=== PATIENT | male | born 1945 | race Hispanic/Latino ===

== ENCOUNTER 2021-04-05 21:41 | Emergency (ER) | payer MEDICARE ==
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
--- NOTE | 2021-04-05 23:07 | Cat Scan Report ---
CT HEAD WITHOUT CONTRAST INDICATION : Fall, head injury. TECHNIQUE: Axial, coronal and sagittal CT imaging was performed from the skull apex through the skul l base without contrast. All CT scans at this location are performed using CT dose reduction for ALA RA by means of automated exposure control. COMPARISON: None available. FINDINGS: PARENCHYMA: No mass, midline shift, hemorrhage, extraaxial collection or acute territorial infarctio n. There is age-appropriate generalized atrophy. VENTRICLES: Symmetric and normal in size. SOFT TISSUES: No significant abnormality of the included soft tissues/orbits. BONES: No acute osseous abnormality. SINUSES: No significant abnormality. ADDITIONAL FINDINGS: None. IMPRESSION: 1. No acute intracranial abnormality. Signer Name: Bharath Morales MD Signed: 04/05/2021 11:03 PM Workstation Name: [id number]
[2021-04-05 23:13] LABS: Basophils # (Auto) 0.1 K/mm3 (0.0-0.1); Basophils % (Auto) 0.7 % (0.0-1.8); Eosinophils # (Auto) 0.5 K/mm3 (0.0-0.4); Eosinophils % (Auto) 5.7 % (0.0-4.3); Hematocrit 42.7 % (35.5-45.6); Hemoglobin 14.4 gm/dl (11.8-15.2); Lymphocytes # (Auto) 1.6 K/mm3 (1.2-5.4); Lymphocytes % (Auto) 19.4 % (13.4-35.0); Mean Corpuscular HGB Conc 34 % (32-34); Mean Corpuscular Volume 95 fl (84-94); Monocytes % (Auto) 11.9 % (0.0-7.3); Platelet Count 233 K/mm3 (140-440); Red Blood Count 4.47 M/mm3 (3.65-5.03); Red Cell Distribution Width 13.5 % (13.2-15.2)
--- NOTE | 2021-04-05 23:14 | Cat Scan Report ---
CT CERVICAL SPINE WITHOUT CONTRAST INDICATION: Neck pain after fall. COMPARISON: None available. TECHNIQUE: Axial, coronal and sagittal CT imaging of the cervical spine without contrast was performe d. All CT scans at this location are performed using CT dose reduction for ALARA by means of automat ed exposure control. FINDINGS: VERTEBRAE:No acute fracture. There is minimal anterolisthesis at C3-C4. DISC SPACES: Multilevel mild discogenic degenerative changes are present. FACET JOINTS:There is multilevel bilateral facet arthropathy. CENTRAL CANAL: No central canal stenosis or neural foraminal narrowing. SOFT TISSUES:No significant abnormality. LUNG APICES: Not included. ADDITIONAL FINDINGS: None IMPRESSION: 1. No acute findings. 2. Mild cervical spondylosis. Signer Name: Bharath Morales MD Signed: 04/05/2021 11:10 PM Workstation Name: [id number]
[2021-04-05 23:48] LABS: BUN/Creatinine Ratio 21; Blood Urea Nitrogen 19 mg/dL (9-20); Calcium 8.5 mg/dL (8.4-10.2); Hemolysis Index 6
[2021-04-06] MEDS ORDERED: LORazepam 2 MG/ML VIAL ONE (10:28)
[2021-04-06] MEDS ORDERED: LORazepam 2 MG/ML VIAL IV ONE (10:53)
[2021-04-06] MEDS ORDERED: HALOPERIDOL LACTATE 5 MG/1 ML INJ IM PRN ×2 (11:00→11:43)
[2021-04-06] MEDS ORDERED: diphenhydrAMINE 25 MG CAP PO PRN (11:43)
--- NOTE | 2021-04-06 11:45 | Event Note ---
Date: 04/06/21 The patient was evaluated in the emergency department for symptoms described in the history of present illness. He/she was evaluated in the context of the global COVID-19 pandemic, which necessitated consideration that the patient might be at risk for infection with the virus that causes COVID-19. Institutional protocols and algorithms that pertain to the evaluation of patients at risk for COVID-19 are in a state of rapid change based on information released by regulatory bodies including the CDC and federal and state organizations. These policies and algorithms were followed during the patient's care in the emergency department. Please note that these policies, procedures and recommendations changed on a rapid basis. Patient standing in room, in no acute distress. Laboratory studies initial ER documentation and imaging studies are reviewed and appreciated. Urinalysis is pending at this time. As needed medications ordered. We have requested that nursing team reconcile home medications. CK, TSH, Tylenol aspirin levels ordered. Coronavirus panel pending. Have also requested that nursing team obtain complete set of vital signs. Psychiatric consultation is pending at this time Vital Signs 04/05/21 04/06/21 22:42 10:44 Pulse Rate 85 Respiratory 16 Rate Blood Pressure 124/66 [Right]
[2021-04-06 13:49] LABS: Bilirubin,Urine NEG (Negative); Blood,Urine NEG (Negative); Color,Urine Yellow (Yellow); Mucus,Urine FEW /HPF; Protein,Urine <15 mg/dL mg/dL (Negative); RBC,Urine < 1.0 /HPF (0.0-6.0); Urobilinogen,Urine < 2.0 mg/dL (<2.0); WBC,Urine < 1.0 /HPF (0.0-6.0)
[2021-04-06 14:50] LABS: Amphetamine Screen,Urine Negative; Benzodiazepines Screen,Urine Negative; Cannabinoid Screen,Urine Negative; Cocaine Screen,Urine Negative; Methadone Screen,Urine Negative; Opiate Screen,Urine Negative
[2021-04-06] MEDS: LORazepam 2 MG/ML VIAL IM PRN (15:35)
[2021-04-07] MEDS ORDERED: ZIPRASIDONE MESYLATE 20 MG VIAL IM ONE (10:59)
[2021-04-07] MEDS ORDERED: LORazepam 2 MG/ML VIAL IM ONE (10:59)
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
[2021-04-07] MEDS: LORazepam 2 MG/ML VIAL IM PRN (11:28)
--- NOTE | 2021-04-07 18:51 | Event Note ---
S: Patient sedated O: Vital signs stable, patient in soft wrist restraints A: Dementia with behavioral disturbance P: Patient accepted to third floor Dia psych
[2021-04-07 19:37] VITALS: BP 127/83
== END 2021-04-07 20:42 | disposition other institution (70) ==
LOC: ED 21:41
DX: S09.90XA Unspecified injury of head, initial encounter (principal); S16.1XXA Strain of muscle, fascia and tendon at neck level, initial encounter; F03.90 Unspecified dementia, unspecified severity, without behavioral disturbance, psychotic disturbance, mood disturbance, and anxiety; I10 Essential (primary) hypertension; Z98.890 Other specified postprocedural states; Z79.899 Other long term (current) drug therapy; W22.8XXA Striking against or struck by other objects, initial encounter; Y93.89 Activity, other specified; Y92.89 Other specified places as the place of occurrence of the external cause; Y99.8 Other external cause status
CPT/HCPCS: 36415; 70450; 72125; 80048; 80307; 80320; 81001; 82550; 82962; 84443; 85025; G0480; J1630; J2060; U0003

== ENCOUNTER 2021-04-07 16:21 | Inpatient (IN) | payer MEDICARE ==
[2021-04-07] MEDS ORDERED: LORazepam 2 MG/ML VIAL IM PRN (19:47)
[2021-04-07] MEDS ORDERED: HALOPERIDOL LACTATE 5 MG/1 ML INJ IM PRN (19:49)
[2021-04-07] MEDS: risperiDONE 0.25 MG TAB PO SCH (22:22)
[2021-04-07] MEDS: MIRTAZAPINE 15 MG TAB PO SCH (22:22)
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
[2021-04-08] MEDS: MEMANTINE 10 MG TAB PO SCH ×2 (11:55→21:07)
[2021-04-08] MEDS: risperiDONE 0.25 MG TAB PO SCH ×2 (11:55→21:07)
[2021-04-08] MEDS: SERTRALINE 100 MG TAB PO SCH (11:55)
[2021-04-08] MEDS: DIVALPROEX DR 250 MG TAB PO SCH ×2 (11:56→21:07)
[2021-04-08] MEDS: CLOPIDOGREL 75 MG TAB PO SCH (11:56)
[2021-04-08] MEDS: PANTOPRAZOLE 40 MG TAB PO SCH (11:56)
[2021-04-08] MEDS: DONEPEZIL 5 MG TAB PO SCH (11:56)
[2021-04-08] MEDS: GABAPENTIN 300 MG CAP PO SCH ×2 (11:56→21:07)
[2021-04-08] MEDS ORDERED: QUEtiapine 25 MG TAB PO SCH (14:00)
[2021-04-08] MEDS: traZODone 50 MG TAB PO SCH (21:07)
[2021-04-08] MEDS: MIRTAZAPINE 15 MG TAB PO SCH (21:07)
[2021-04-08 23:34] LABS: Basophils % (Auto) 0.5 % (0.0-1.8); Eosinophils # (Auto) 0.3 K/mm3 (0.0-0.4); Eosinophils % (Auto) 2.7 % (0.0-4.3); Hematocrit 49.3 % (35.5-45.6); Lymphocytes # (Auto) 1.3 K/mm3 (1.2-5.4); Lymphocytes % (Auto) 13.1 % (13.4-35.0); Mean Corpuscular HGB Conc 35 % (32-34); Mean Corpuscular Volume 96 fl (84-94); Monocytes # (Auto) 1.4 K/mm3 (0.0-0.8); Monocytes % (Auto) 14.8 % (0.0-7.3); Platelet Count 249 K/mm3 (140-440); Red Blood Count 5.14 M/mm3 (3.65-5.03); Red Cell Distribution Width 13.1 % (13.2-15.2)
[2021-04-09 03:44] LABS: Alanine Aminotransferase 17 units/L (7-56); BUN/Creatinine Ratio 20; Blood Urea Nitrogen 18 mg/dL (9-20); Calcium 8.9 mg/dL (8.4-10.2); Chol/HDL Ratio 2.45 %; HDL Cholesterol 53 mg/dL (40-59); Hemolysis Index 10; LDL Cholesterol,Direct 62 mg/dL (50-130)
[2021-04-09] MEDS: DIVALPROEX DR 250 MG TAB PO SCH (09:24)
[2021-04-09] MEDS: DONEPEZIL 5 MG TAB PO SCH (09:24)
[2021-04-09] MEDS: risperiDONE 0.25 MG TAB PO SCH ×2 (09:25→22:06)
[2021-04-09] MEDS: GABAPENTIN 300 MG CAP PO SCH ×2 (09:25→22:03)
[2021-04-09] MEDS: SERTRALINE 100 MG TAB PO SCH (09:26)
[2021-04-09] MEDS: CLOPIDOGREL 75 MG TAB PO SCH (09:26)
[2021-04-09] MEDS: PANTOPRAZOLE 40 MG TAB PO SCH (09:26)
[2021-04-09] MEDS: MEMANTINE 10 MG TAB PO SCH ×2 (10:38→22:05)
--- NOTE | 2021-04-09 10:53 | Progress Note ---
Subjective Date of service: 04/09/21 Principal diagnosis: Dementia with Behavioral Disturbance Subjective Comment: Per Nurse Note: pt is resistive with care, combative when he was being changed, medication given in pudding , slept all night, no distress noted, will continue to monitor for safety. The patient was seen today. He is drowsy, but arouses. He is confused. REVIEW OF SYSTEMS ROS cannot be reliably obtained from the patient due to his mental state MENTAL STATUS EXAMINATION Unable to assess Diagnoses Dementia with Behavioral Disturbance Treatment Plan Patient admitted for inpatient psychiatric evaluation, medication adjustment and close monitoring The patient's behavior, mood, sleep and appetite will be closely monitored. Patient enrolled in individual and group therapeutic sessions and encouraged to attend. Patient provided with a safe and structured environment. Patient's physical health needs will be addressed by the Hospitalist. Hospitalist Consulted Labs including CBC, CMP, Lipid profile and Hemoglobin A1C levels ordered for baseline reference Social Assessment will be completed and the Food Assembler will work with patient and family to ensure a suitable and safe disposition Medication adjustment will be made as clinically indicated Usual Wellness Mormon/Preservation: - Start Trazodone 50 mg po QHS & 50 mg po QHS PRN between 10 PM & 2 AM for insomnia - Start Melatonin 5 mg po QHS to promote circadian rhythm - Start [place]-3 for brain health, reduce impulsivity, and as adjunctive treatment for mood disorder, continue upon discharge given overall benefits. - Start B1 prophylaxis with 200 mg po for 5 days The patient agreed on the treatment plan, understood the risk, benefit, alternative treatment, potential consequence of no treatment, and gave informed consent. Estimated days: 5 Post hospital care: primary care provider, psychiatric provider Medications and Allergies Allergies Allergy/AdvReac Type Severity Reaction Status Date / Time No Known Allergies Allergy Unverified 04/06/21 10:45 Home Medications Medication Instructions Recorded Confirmed Last Taken Type AtorvaSTATin [Lipitor] 40 mg PO QHS 04/07/21 04/07/21 Unknown History Clopidogrel [Plavix] 75 mg PO QDAY 04/07/21 04/07/21 Unknown History Divalproex [Sanket GARCIA] 250 mg PO BID 04/07/21 04/07/21 Unknown History Gabapentin [Neurontin] 300 mg PO BID 04/07/21 04/07/21 Unknown History Memantine [Namenda] 10 mg PO BID 04/07/21 04/07/21 Unknown History Pantoprazole [Protonix] 40 mg PO QDAY 04/07/21 04/07/21 Unknown History QUEtiapine [SEROquel] 25 mg PO TID 04/07/21 04/07/21 Unknown History Sertraline [Zoloft] 100 mg PO QDAY 04/07/21 04/07/21 Unknown History donepeziL [Aricept] 5 mg PO QDAY 04/07/21 04/07/21 Unknown History traZODone [Desyrel] 50 mg PO QHS 04/07/21 04/07/21 Unknown History Active Meds: Active Medications Atorvastatin Calcium (Atorvastatin 40 Mg Tab) 40 mg PO QHS [facility] Last Admin: 04/08/21 21:07 Dose: 40 mg Documented by: Clopidogrel Bisulfate (Clopidogrel 75 Mg Tab) 75 mg PO QDAY [facility] Last Admin: 04/09/21 09:26 Dose: 75 mg Documented by: Divalproex Sodium (Divalproex Dr 250 Mg Tab) 250 mg PO BID [facility] Last Admin: 04/09/21 09:24 Dose: 250 mg Documented by: Donepezil HCl (Donepezil 5 Mg Tab) 5 mg PO QDAY [facility] Last Admin: 04/09/21 09:24 Dose: 5 mg Documented by: Gabapentin (Gabapentin 300 Mg Cap) 300 mg PO BID [facility] Last Admin: 04/09/21 09:25 Dose: 300 mg Documented by: Haloperidol Lactate (Haloperidol Lactate 5 Mg/1 Ml Inj) 5 mg IM Q6H PRN PRN Reason: Agitation Lorazepam (Lorazepam 2 Mg/Ml Vial) 2 mg IM Q6H PRN PRN Reason: Agitation Melatonin (Melatonin 5 Mg Tab) 5 mg PO QHS PRN PRN Reason: Sleep Memantine (Memantine 10 Mg Tab) 10 mg PO BID [facility] Last Admin: 04/08/21 21:07 Dose: 10 mg Documented by: Mirtazapine (Mirtazapine 15 Mg Tab) 15 mg PO QHS [facility] Last Admin: 04/08/21 21:07 Dose: 15 mg Documented by: Pantoprazole Sodium (Pantoprazole 40 Mg Tab) 40 mg PO QDAY [facility] Last Admin: 04/09/21 09:26 Dose: 40 mg Documented by: Risperidone (Risperidone 0.25 Mg Tab) 0.5 mg PO BID [facility] Last Admin: 04/09/21 09:25 Dose: 0.5 mg Documented by: Sertraline HCl (Sertraline 100 Mg Tab) 100 mg PO QDAY [facility] Last Admin: 04/09/21 09:26 Dose: 100 mg Documented by: Trazodone HCl (Trazodone 50 Mg Tab) 50 mg PO QHS [facility] Last Admin: 04/08/21 21:07 Dose: 50 mg Documented by: Results - Results Labs/Vitals: Laboratory Last Values WBC 9.8 K/mm3 (4.5-11.0) 04/08/21 22:55 RBC 5.14 M/mm3 (3.65-5.03) H 04/08/21 22:55 Hgb 17.0 gm/dl (11.8-15.2) H 04/08/21 22:55 Hct 49.3 % (35.5-45.6) H D 04/08/21 22:55 MCV 96 fl (84-94) H 04/08/21 22:55 MCH 33 pg (28-32) H 04/08/21 22:55 MCHC 35 % (32-34) H 04/08/21 22:55 RDW 13.1 % (13.2-15.2) L 04/08/21 22:55 Plt Count 249 K/mm3 (140-440) 04/08/21 22:55 Lymph % (Auto) 13.1 % (13.4-35.0) L 04/08/21 22:55 [place] % (Auto) 14.8 % (0.0-7.3) H 04/08/21 22:55 Eos % (Auto) 2.7 % (0.0-4.3) 04/08/21 22:55 Baso % (Auto) 0.5 % (0.0-1.8) 04/08/21 22:55 Lymph # (Auto) 1.3 K/mm3 (1.2-5.4) 04/08/21 22:55 [place] # (Auto) 1.4 K/mm3 (0.0-0.8) H 04/08/21 22:55 Eos # (Auto) 0.3 K/mm3 (0.0-0.4) 04/08/21 22:55 Baso # (Auto) 0.0 K/mm3 (0.0-0.1) 04/08/21 22:55 Seg Neutrophils % 68.9 % (40.0-70.0) 04/08/21 22:55 Seg Neutrophils # 6.7 K/mm3 (1.8-7.7) 04/08/21 22:55 Sodium 139 mmol/L (137-145) 04/08/21 22:55 Potassium 4.1 mmol/L (3.6-5.0) 04/08/21 22:55 Chloride 100.2 mmol/L (98-107) 04/08/21 22:55 Carbon Dioxide 21 mmol/L (22-30) L D 04/08/21 22:55 Anion Gap 22 mmol/L 04/08/21 22:55 BUN 18 mg/dL (9-20) 04/08/21 22:55 Creatinine 0.9 mg/dL (0.8-1.3) 04/08/21 22:55 Estimated GFR > 60 ml/min 04/08/21 22:55 BUN/Creatinine Ratio 20 % 04/08/21 22:55 Glucose 130 mg/dL (75-100) H 04/08/21 22:55 POC Glucose 113 mg/dL (70-105) H 04/07/21 22:48 Hemoglobin A1c 6.6 % (4-6) H 04/08/21 22:55 Calcium 8.9 mg/dL (8.4-10.2) 04/08/21 22:55 Magnesium 2.10 mg/dL (1.7-2.3) 04/08/21 22:55 Total Bilirubin 0.60 mg/dL (0.1-1.2) 04/08/21 22:55 AST 30 units/L (5-40) 04/08/21 22:55 ALT 17 units/L (7-56) 04/08/21 22:55 Alkaline Phosphatase 102 units/L (35-129) 04/08/21 22:55 Total Protein 6.7 g/dL (6.3-8.2) 04/08/21 22:55 Albumin 4.0 g/dL (3.9-5) 04/08/21 22:55 Albumin/Globulin Ratio 1.5 % 04/08/21 22:55 Triglycerides 100 mg/dL (2-149) 04/08/21 22:55 Cholesterol 130 mg/dL (50-199) 04/08/21 22:55 LDL Cholesterol Direct 62 mg/dL (50-130) 04/08/21 22:55 HDL Cholesterol 53 mg/dL (40-59) 04/08/21 22:55 Cholesterol/HDL Ratio 2.45 % 04/08/21 22:55 TSH 3.120 mlU/mL (0.270-4.200) 04/08/21 22:55 Last Vital Signs Temp 98.0 F 04/09/21 09:41 Pulse 76 04/09/21 09:41 Resp 20 04/09/21 09:41 BP 111/59 04/09/21 09:41 Pulse Ox 92 04/09/21 09:41
[2021-04-09] MEDS: MIRTAZAPINE 15 MG TAB PO SCH (22:03)
[2021-04-09] MEDS: VALPROIC ACID 250 MG/5 ML ORAL LIQD PO SCH (22:03)
[2021-04-09] MEDS: traZODone 50 MG TAB PO SCH (22:04)
[2021-04-09] MEDS: MELATONIN 5 MG TAB PO PRN (22:06)
[2021-04-10] MEDS: PANTOPRAZOLE 40 MG TAB PO SCH (10:07)
[2021-04-10] MEDS: MEMANTINE 10 MG TAB PO SCH ×2 (10:07→21:48)
[2021-04-10] MEDS: risperiDONE 0.25 MG TAB PO SCH ×2 (10:07→21:47)
[2021-04-10] MEDS: SERTRALINE 100 MG TAB PO SCH (10:07)
[2021-04-10] MEDS: GABAPENTIN 300 MG CAP PO SCH ×2 (10:07→21:48)
[2021-04-10] MEDS: DONEPEZIL 5 MG TAB PO SCH (10:07)
[2021-04-10] MEDS: CLOPIDOGREL 75 MG TAB PO SCH (10:08)
[2021-04-10] MEDS: VALPROIC ACID 250 MG/5 ML ORAL LIQD PO SCH ×3 (10:09→21:00)
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
[2021-04-10] MEDS: MIRTAZAPINE 15 MG TAB PO SCH (21:48)
[2021-04-10] MEDS: traZODone 50 MG TAB PO SCH (21:48)
[2021-04-10] MEDS ORDERED: risperiDONE 1 MG TAB PO SCH (22:00)
[2021-04-11] MEDS: VALPROIC ACID 250 MG/5 ML ORAL LIQD PO SCH ×3 (08:57→21:46)
[2021-04-11] MEDS: CLOPIDOGREL 75 MG TAB PO SCH (09:10)
[2021-04-11] MEDS: SERTRALINE 100 MG TAB PO SCH (09:10)
[2021-04-11] MEDS: GABAPENTIN 300 MG CAP PO SCH ×2 (09:11→21:46)
[2021-04-11] MEDS: DONEPEZIL 5 MG TAB PO SCH (09:11)
[2021-04-11] MEDS: PANTOPRAZOLE 40 MG TAB PO SCH (09:11)
[2021-04-11] MEDS: risperiDONE 0.25 MG TAB PO SCH ×2 (09:11→21:47)
[2021-04-11] MEDS: MEMANTINE 10 MG TAB PO SCH ×2 (09:11→21:47)
[2021-04-11] MEDS: traZODone 50 MG TAB PO SCH (21:46)
[2021-04-11] MEDS: MIRTAZAPINE 15 MG TAB PO SCH (21:47)
[2021-04-11] MEDS: MELATONIN 5 MG TAB PO PRN (21:48)
--- NOTE | 2021-04-12 09:19 | Progress Note ---
Subjective Date of service: 04/12/21 Principal diagnosis: Dementia with Behavioral Disturbance Subjective Comment: Per Nurse Note: Last evening the patient spent in the activity room with peers. He had minimal interactions. He dozed off and on. He talked to himself. Patient does not understand questions regarding suicidality. His appetite is fair and he needs encouragement to eat. He was medication compliant. Overnight the patient rested quietly. He continues to become agitated during adls. He presents as sleeping 8 hours. Will continue to monitor patient for safety. The patient was seen today. He is drowsy, but arouses. He is confused. He still mumbles some nonsensical words. Nursing staff has reported that he talks to himself, and continues to be agitated. Reason for continued inpatient treatment: The patient continues to be agitated REVIEW OF SYSTEMS ROS cannot be reliably obtained from the patient due to his mental state MENTAL STATUS EXAMINATION Unable to assess Diagnoses Dementia with Behavioral Disturbance Treatment Plan Patient admitted for inpatient psychiatric evaluation, medication adjustment and close monitoring The patient's behavior, mood, sleep and appetite will be closely monitored. Patient enrolled in individual and group therapeutic sessions and encouraged to attend. Patient provided with a safe and structured environment. Patient's physical health needs will be addressed by the Hospitalist. Hospitalist Consulted Labs including CBC, CMP, Lipid profile and Hemoglobin A1C levels ordered for baseline reference Social Assessment will be completed and the Jet Handler will work with patient and family to ensure a suitable and safe disposition Medication adjustment will be made as clinically indicated Increased Valproic 250mg po TID yesterday No changes made today Usual Wellness Latter Day/Preservation: - Start Trazodone 50 mg po QHS & 50 mg po QHS PRN between 10 PM & 2 AM for insomnia - Start Melatonin 5 mg po QHS to promote circadian rhythm - Start [place]-3 for brain health, reduce impulsivity, and as adjunctive treatment for mood disorder, continue upon discharge given overall benefits. - Start B1 prophylaxis with 200 mg po for 5 days The patient agreed on the treatment plan, understood the risk, benefit, alternative treatment, potential consequence of no treatment, and gave informed consent. Estimated days: 5 Post hospital care: primary care provider, psychiatric provider Medications and Allergies Allergies Allergy/AdvReac Type Severity Reaction Status Date / Time No Known Allergies Allergy Unverified 04/06/21 10:45 Home Medications Medication Instructions Recorded Confirmed Last Taken Type AtorvaSTATin [Lipitor] 40 mg PO QHS 04/07/21 04/07/21 Unknown History Clopidogrel [Plavix] 75 mg PO QDAY 04/07/21 04/07/21 Unknown History Divalproex [Sanket GARCIA] 250 mg PO BID 04/07/21 04/07/21 Unknown History Gabapentin [Neurontin] 300 mg PO BID 04/07/21 04/07/21 Unknown History Memantine [Namenda] 10 mg PO BID 04/07/21 04/07/21 Unknown History Pantoprazole [Protonix] 40 mg PO QDAY 04/07/21 04/07/21 Unknown History QUEtiapine [SEROquel] 25 mg PO TID 04/07/21 04/07/21 Unknown History Sertraline [Zoloft] 100 mg PO QDAY 04/07/21 04/07/21 Unknown History donepeziL [Aricept] 5 mg PO QDAY 04/07/21 04/07/21 Unknown History traZODone [Desyrel] 50 mg PO QHS 04/07/21 04/07/21 Unknown History Active Meds: Active Medications Atorvastatin Calcium (Atorvastatin 40 Mg Tab) 40 mg PO QHS [facility] Last Admin: 04/11/21 21:47 Dose: 40 mg Documented by: Clopidogrel Bisulfate (Clopidogrel 75 Mg Tab) 75 mg PO QDAY [facility] Last Admin: 04/11/21 09:10 Dose: 75 mg Documented by: Donepezil HCl (Donepezil 5 Mg Tab) 5 mg PO QDAY [facility] Last Admin: 04/11/21 09:11 Dose: 5 mg Documented by: Gabapentin (Gabapentin 300 Mg Cap) 300 mg PO BID [facility] Last Admin: 04/11/21 21:46 Dose: 300 mg Documented by: Haloperidol Lactate (Haloperidol Lactate 5 Mg/1 Ml Inj) 5 mg IM Q6H PRN PRN Reason: Agitation Lorazepam (Lorazepam 2 Mg/Ml Vial) 2 mg IM Q6H PRN PRN Reason: Agitation Melatonin (Melatonin 5 Mg Tab) 5 mg PO QHS PRN PRN Reason: Sleep Last Admin: 04/11/21 21:48 Dose: 5 mg Documented by: Memantine (Memantine 10 Mg Tab) 10 mg PO BID [facility] Last Admin: 04/11/21 21:47 Dose: 10 mg Documented by: Mirtazapine (Mirtazapine 15 Mg Tab) 15 mg PO QHS [facility] Last Admin: 04/11/21 21:47 Dose: 15 mg Documented by: Pantoprazole Sodium (Pantoprazole 40 Mg Tab) 40 mg PO QDAY [facility] Last Admin: 04/11/21 09:11 Dose: 40 mg Documented by: Risperidone (Risperidone 0.25 Mg Tab) 0.5 mg PO BID [facility] Last Admin: 04/11/21 21:47 Dose: 0.5 mg Documented by: Sertraline HCl (Sertraline 100 Mg Tab) 100 mg PO QDAY [facility] Last Admin: 04/11/21 09:10 Dose: 100 mg Documented by: Trazodone HCl (Trazodone 50 Mg Tab) 50 mg PO QHS [facility] Last Admin: 04/11/21 21:46 Dose: 50 mg Documented by: Valproic Acid (Valproic Acid 250 Mg/5 Ml Oral Liqd) 250 mg PO TID [facility] Last Admin: 04/11/21 21:46 Dose: 250 mg Documented by: Results - Results Labs/Vitals: Laboratory Last Values WBC 9.8 K/mm3 (4.5-11.0) 04/08/21 22:55 RBC 5.14 M/mm3 (3.65-5.03) H 04/08/21 22:55 Hgb 17.0 gm/dl (11.8-15.2) H 04/08/21 22:55 Hct 49.3 % (35.5-45.6) H D 04/08/21 22:55 MCV 96 fl (84-94) H 04/08/21 22:55 MCH 33 pg (28-32) H 04/08/21 22:55 MCHC 35 % (32-34) H 04/08/21 22:55 RDW 13.1 % (13.2-15.2) L 04/08/21 22:55 Plt Count 249 K/mm3 (140-440) 04/08/21 22:55 Lymph % (Auto) 13.1 % (13.4-35.0) L 04/08/21 22:55 [place] % (Auto) 14.8 % (0.0-7.3) H 04/08/21 22:55 Eos % (Auto) 2.7 % (0.0-4.3) 04/08/21 22:55 Baso % (Auto) 0.5 % (0.0-1.8) 04/08/21 22:55 Lymph # (Auto) 1.3 K/mm3 (1.2-5.4) 04/08/21 22:55 [place] # (Auto) 1.4 K/mm3 (0.0-0.8) H 04/08/21 22:55 Eos # (Auto) 0.3 K/mm3 (0.0-0.4) 04/08/21 22:55 Baso # (Auto) 0.0 K/mm3 (0.0-0.1) 04/08/21 22:55 Seg Neutrophils % 68.9 % (40.0-70.0) 04/08/21 22:55 Seg Neutrophils # 6.7 K/mm3 (1.8-7.7) 04/08/21 22:55 Sodium 139 mmol/L (137-145) 04/08/21 22:55 Potassium 4.1 mmol/L (3.6-5.0) 04/08/21 22:55 Chloride 100.2 mmol/L (98-107) 04/08/21 22:55 Carbon Dioxide 21 mmol/L (22-30) L D 04/08/21 22:55 Anion Gap 22 mmol/L 04/08/21 22:55 BUN 18 mg/dL (9-20) 04/08/21 22:55 Creatinine 0.9 mg/dL (0.8-1.3) 04/08/21 22:55 Estimated GFR > 60 ml/min 04/08/21 22:55 BUN/Creatinine Ratio 20 % 04/08/21 22:55 Glucose 130 mg/dL (75-100) H 04/08/21 22:55 POC Glucose 113 mg/dL (70-105) H 04/07/21 22:48 Hemoglobin A1c 6.6 % (4-6) H 04/08/21 22:55 Calcium 8.9 mg/dL (8.4-10.2) 04/08/21 22:55 Magnesium 2.10 mg/dL (1.7-2.3) 04/08/21 22:55 Total Bilirubin 0.60 mg/dL (0.1-1.2) 04/08/21 22:55 AST 30 units/L (5-40) 04/08/21 22:55 ALT 17 units/L (7-56) 04/08/21 22:55 Alkaline Phosphatase 102 units/L (35-129) 04/08/21 22:55 Total Protein 6.7 g/dL (6.3-8.2) 04/08/21 22:55 Albumin 4.0 g/dL (3.9-5) 04/08/21 22:55 Albumin/Globulin Ratio 1.5 % 04/08/21 22:55 Triglycerides 100 mg/dL (2-149) 04/08/21 22:55 Cholesterol 130 mg/dL (50-199) 04/08/21 22:55 LDL Cholesterol Direct 62 mg/dL (50-130) 04/08/21 22:55 HDL Cholesterol 53 mg/dL (40-59) 04/08/21 22:55 Cholesterol/HDL Ratio 2.45 % 04/08/21 22:55 TSH 3.120 mlU/mL (0.270-4.200) 04/08/21 22:55 Last Vital Signs Temp 97.7 F 04/11/21 19:29 Pulse 95 H 04/11/21 19:29 Resp 18 04/11/21 19:29 BP 108/70 04/11/21 19:29 Pulse Ox 91 04/11/21 19:29
[2021-04-12] MEDS: risperiDONE 0.25 MG TAB PO SCH ×2 (11:33→21:21)
[2021-04-12] MEDS: VALPROIC ACID 250 MG/5 ML ORAL LIQD PO SCH ×3 (11:33→21:22)
[2021-04-12] MEDS: SERTRALINE 100 MG TAB PO SCH (11:33)
[2021-04-12] MEDS: GABAPENTIN 300 MG CAP PO SCH ×2 (11:34→21:21)
[2021-04-12] MEDS: MEMANTINE 10 MG TAB PO SCH ×2 (11:34→21:28)
[2021-04-12] MEDS: CLOPIDOGREL 75 MG TAB PO SCH (11:34)
[2021-04-12] MEDS: PANTOPRAZOLE 40 MG TAB PO SCH (11:34)
[2021-04-12] MEDS: DONEPEZIL 5 MG TAB PO SCH (11:34)
--- NOTE | 2021-04-12 11:49 | Event Note ---
Date: 04/12/21 Spoke to the patient's daughter to discuss the patient's medications and progress.
[2021-04-12] MEDS: traZODone 50 MG TAB PO SCH (21:21)
[2021-04-12] MEDS: MIRTAZAPINE 15 MG TAB PO SCH (21:21)
--- NOTE | 2021-04-13 10:30 | Progress Note ---
Subjective Date of service: 04/13/21 Principal diagnosis: Dementia with Behavioral Disturbance Subjective Comment: The patient was seen today. He is drowsy, but arouses. He is confused. Nursing staff states the patient is confused, hallucinates and continues to be agitated and combative. Reason for continued inpatient treatment: The patient continues to be agitated, combative and hallucinates. Will adjust medication, and continue to monitor progress. REVIEW OF SYSTEMS ROS cannot be reliably obtained from the patient due to his mental state MENTAL STATUS EXAMINATION Unable to assess Diagnoses Dementia with Behavioral Disturbance Treatment Plan Patient admitted for inpatient psychiatric evaluation, medication adjustment and close monitoring The patient's behavior, mood, sleep and appetite will be closely monitored. Patient enrolled in individual and group therapeutic sessions and encouraged to attend. Patient provided with a safe and structured environment. Patient's physical health needs will be addressed by the Hospitalist. Hospitalist Consulted Labs including CBC, CMP, Lipid profile and Hemoglobin A1C levels ordered for baseline reference Social Assessment will be completed and the Tariff Publishing Agent will work with patient and family to ensure a suitable and safe disposition Medication adjustment will be made as clinically indicated Decreaes Valproic 125mg po TID yesterday to prevent daytime sleepiness Increase Risperidone 1mg po BID Usual Wellness Anglican/Preservation: - Start Trazodone 50 mg po QHS & 50 mg po QHS PRN between 10 PM & 2 AM for insomnia - Start Melatonin 5 mg po QHS to promote circadian rhythm - Start [place]-3 for brain health, reduce impulsivity, and as adjunctive treatment for mood disorder, continue upon discharge given overall benefits. - Start B1 prophylaxis with 200 mg po for 5 days The patient agreed on the treatment plan, understood the risk, benefit, alternative treatment, potential consequence of no treatment, and gave informed consent. Estimated days: 5 Post hospital care: primary care provider, psychiatric provider Medications and Allergies Allergies Allergy/AdvReac Type Severity Reaction Status Date / Time No Known Allergies Allergy Unverified 04/06/21 10:45 Home Medications Medication Instructions Recorded Confirmed Last Taken Type AtorvaSTATin [Lipitor] 40 mg PO QHS 04/07/21 04/07/21 Unknown History Clopidogrel [Plavix] 75 mg PO QDAY 04/07/21 04/07/[address] [DepaKOTE DR] 250 mg PO BID 04/07/21 04/07/21 Unknown History Gabapentin [Neurontin] 300 mg PO BID 04/07/21 04/07/21 Unknown History Memantine [Namenda] 10 mg PO BID 04/07/21 04/07/21 Unknown History Pantoprazole [Protonix] 40 mg PO QDAY 04/07/21 04/07/21 Unknown History QUEtiapine [SEROquel] 25 mg PO TID 04/07/21 04/07/21 Unknown History Sertraline [Zoloft] 100 mg PO QDAY 04/07/21 04/07/21 Unknown History donepeziL [Aricept] 5 mg PO QDAY 04/07/21 04/07/21 Unknown History traZODone [Desyrel] 50 mg PO QHS 04/07/21 04/07/21 Unknown History Active Meds: Active Medications Atorvastatin Calcium (Atorvastatin 40 Mg Tab) 40 mg PO QHS [facility] Last Admin: 04/12/21 21:21 Dose: 40 mg Documented by: Clopidogrel Bisulfate (Clopidogrel 75 Mg Tab) 75 mg PO QDAY [facility] Last Admin: 04/12/21 11:34 Dose: 75 mg Documented by: Donepezil HCl (Donepezil 5 Mg Tab) 5 mg PO QDAY [facility] Last Admin: 04/12/21 11:34 Dose: 5 mg Documented by: Gabapentin (Gabapentin 300 Mg Cap) 300 mg PO BID [facility] Last Admin: 04/12/21 21:21 Dose: 300 mg Documented by: Haloperidol Lactate (Haloperidol Lactate 5 Mg/1 Ml Inj) 5 mg IM Q6H PRN PRN Reason: Agitation Lorazepam (Lorazepam 2 Mg/Ml Vial) 2 mg IM Q6H PRN PRN Reason: Agitation Melatonin (Melatonin 5 Mg Tab) 5 mg PO QHS PRN PRN Reason: Sleep Last Admin: 04/11/21 21:48 Dose: 5 mg Documented by: Memantine (Memantine 10 Mg Tab) 10 mg PO BID [facility] Last Admin: 04/12/21 21:28 Dose: 10 mg Documented by: Mirtazapine (Mirtazapine 15 Mg Tab) 15 mg PO QHS [facility] Last Admin: 04/12/21 21:21 Dose: 15 mg Documented by: Pantoprazole Sodium (Pantoprazole 40 Mg Tab) 40 mg PO QDAY [facility] Last Admin: 04/12/21 11:34 Dose: 40 mg Documented by: Risperidone (Risperidone 0.25 Mg Tab) 0.5 mg PO BID [facility] Last Admin: 04/12/21 21:21 Dose: 0.5 mg Documented by: Sertraline HCl (Sertraline 100 Mg Tab) 100 mg PO QDAY [facility] Last Admin: 04/12/21 11:33 Dose: 100 mg Documented by: Trazodone HCl (Trazodone 50 Mg Tab) 50 mg PO QHS [facility] Last Admin: 04/12/21 21:21 Dose: 50 mg Documented by: Valproic Acid (Valproic Acid 250 Mg/5 Ml Oral Liqd) 250 mg PO TID [facility] Last Admin: 04/12/21 21:22 Dose: 250 mg Documented by: Results - Results Labs/Vitals: Laboratory Last Values WBC 9.8 K/mm3 (4.5-11.0) 04/08/21 22:55 RBC 5.14 M/mm3 (3.65-5.03) H 04/08/21 22:55 Hgb 17.0 gm/dl (11.8-15.2) H 04/08/21 22:55 Hct 49.3 % (35.5-45.6) H D 04/08/21 22:55 MCV 96 fl (84-94) H 04/08/21 22:55 MCH 33 pg (28-32) H 04/08/21 22:55 MCHC 35 % (32-34) H 04/08/21 22:55 RDW 13.1 % (13.2-15.2) L 04/08/21 22:55 Plt Count 249 K/mm3 (140-440) 04/08/21 22:55 Lymph % (Auto) 13.1 % (13.4-35.0) L 04/08/21 22:55 [place] % (Auto) 14.8 % (0.0-7.3) H 04/08/21 22:55 Eos % (Auto) 2.7 % (0.0-4.3) 04/08/21 22:55 Baso % (Auto) 0.5 % (0.0-1.8) 04/08/21 22:55 Lymph # (Auto) 1.3 K/mm3 (1.2-5.4) 04/08/21 22:55 [place] # (Auto) 1.4 K/mm3 (0.0-0.8) H 04/08/21 22:55 Eos # (Auto) 0.3 K/mm3 (0.0-0.4) 04/08/21 22:55 Baso # (Auto) 0.0 K/mm3 (0.0-0.1) 04/08/21 22:55 Seg Neutrophils % 68.9 % (40.0-70.0) 04/08/21 22:55 Seg Neutrophils # 6.7 K/mm3 (1.8-7.7) 04/08/21 22:55 Sodium 139 mmol/L (137-145) 04/08/21 22:55 Potassium 4.1 mmol/L (3.6-5.0) 04/08/21 22:55 Chloride 100.2 mmol/L (98-107) 04/08/21 22:55 Carbon Dioxide 21 mmol/L (22-30) L D 04/08/21 22:55 Anion Gap 22 mmol/L 04/08/21 22:55 BUN 18 mg/dL (9-20) 04/08/21 22:55 Creatinine 0.9 mg/dL (0.8-1.3) 04/08/21 22:55 Estimated GFR > 60 ml/min 04/08/21 22:55 BUN/Creatinine Ratio 20 % 04/08/21 22:55 Glucose 130 mg/dL (75-100) H 04/08/21 22:55 POC Glucose 113 mg/dL (70-105) H 04/07/21 22:48 Hemoglobin A1c 6.6 % (4-6) H 04/08/21 22:55 Calcium 8.9 mg/dL (8.4-10.2) 04/08/21 22:55 Magnesium 2.10 mg/dL (1.7-2.3) 04/08/21 22:55 Total Bilirubin 0.60 mg/dL (0.1-1.2) 04/08/21 22:55 AST 30 units/L (5-40) 04/08/21 22:55 ALT 17 units/L (7-56) 04/08/21 22:55 Alkaline Phosphatase 102 units/L (35-129) 04/08/21 22:55 Total Protein 6.7 g/dL (6.3-8.2) 04/08/21 22:55 Albumin 4.0 g/dL (3.9-5) 04/08/21 22:55 Albumin/Globulin Ratio 1.5 % 04/08/21 22:55 Triglycerides 100 mg/dL (2-149) 04/08/21 22:55 Cholesterol 130 mg/dL (50-199) 04/08/21 22:55 LDL Cholesterol Direct 62 mg/dL (50-130) 04/08/21 22:55 HDL Cholesterol 53 mg/dL (40-59) 04/08/21 22:55 Cholesterol/HDL Ratio 2.45 % 04/08/21 22:55 TSH 3.120 mlU/mL (0.270-4.200) 04/08/21 22:55 Last Vital Signs Temp 98.7 F 04/12/21 19:26 Pulse 74 04/12/21 19:27 Resp 18 04/12/21 19:26 BP 108/73 04/12/21 19:26 Pulse Ox 90 04/12/21 19:27
[2021-04-13] MEDS: SERTRALINE 100 MG TAB PO SCH (10:54)
[2021-04-13] MEDS: MEMANTINE 10 MG TAB PO SCH ×2 (10:55→21:07)
[2021-04-13] MEDS: GABAPENTIN 300 MG CAP PO SCH ×2 (10:55→21:07)
[2021-04-13] MEDS: CLOPIDOGREL 75 MG TAB PO SCH (10:55)
[2021-04-13] MEDS: PANTOPRAZOLE 40 MG TAB PO SCH (10:55)
[2021-04-13] MEDS: DONEPEZIL 5 MG TAB PO SCH (10:55)
[2021-04-13] MEDS: risperiDONE 1 MG TAB PO SCH ×2 (10:58→21:07)
[2021-04-13] MEDS: VALPROIC ACID 250 MG/5 ML ORAL LIQD PO SCH ×3 (11:01→20:35)
[2021-04-13] MEDS: risperiDONE 0.25 MG TAB PO SCH (11:02)
[2021-04-13] MEDS: traZODone 50 MG TAB PO SCH (21:07)
[2021-04-13] MEDS: MIRTAZAPINE 15 MG TAB PO SCH (21:09)
[2021-04-14] MEDS: VALPROIC ACID 250 MG/5 ML ORAL LIQD PO SCH ×3 (08:45→20:16)
--- NOTE | 2021-04-14 10:34 | Progress Note ---
Subjective Date of service: 04/14/21 Principal diagnosis: Dementia with Behavioral Disturbance Subjective Comment: Per ER Note: pt is still combative, aggressive toward staff when being changed, pt does not want to be touched, medication given crushed in pudding, ate 75% of snack last evening, slept all night, no distress noted, will continue to monitor for safety The patient was seen today. He is drowsy, but arouses. He is confused. He is unable to be engaged in interview. Reason for continued inpatient treatment: The patient continues to be agitated, and combative. Will adjust medication, and continue to monitor progress. REVIEW OF SYSTEMS ROS cannot be reliably obtained from the patient due to his mental state MENTAL STATUS EXAMINATION Unable to assess Diagnoses Dementia with Behavioral Disturbance Treatment Plan Patient admitted for inpatient psychiatric evaluation, medication adjustment and close monitoring The patient's behavior, mood, sleep and appetite will be closely monitored. Patient enrolled in individual and group therapeutic sessions and encouraged to attend. Patient provided with a safe and structured environment. Patient's physical health needs will be addressed by the Hospitalist. Hospitalist Consulted Labs including CBC, CMP, Lipid profile and Hemoglobin A1C levels ordered for baseline reference Social Assessment will be completed and the Receiving Inspector will work with patient and family to ensure a suitable and safe disposition Medication adjustment will be made as clinically indicated Decreaes Valproic 125mg po TID yesterday to prevent daytime sleepiness yesterday Increase Risperidone 1mg po BID yesterday No changes made today Usual Wellness Holiness/Preservation: - Start Trazodone 50 mg po QHS & 50 mg po QHS PRN between 10 PM & 2 AM for insomnia - Start Melatonin 5 mg po QHS to promote circadian rhythm - Start [place]-3 for brain health, reduce impulsivity, and as adjunctive treatment for mood disorder, continue upon discharge given overall benefits. - Start B1 prophylaxis with 200 mg po for 5 days The patient agreed on the treatment plan, understood the risk, benefit, alternative treatment, potential consequence of no treatment, and gave informed consent. Estimated days: 5 Post hospital care: primary care provider, psychiatric provider Medications and Allergies Allergies Allergy/AdvReac Type Severity Reaction Status Date / Time No Known Allergies Allergy Unverified 04/06/21 10:45 Home Medications Medication Instructions Recorded Confirmed Last Taken Type AtorvaSTATin [Lipitor] 40 mg PO QHS 04/07/21 04/07/21 Unknown History Clopidogrel [Plavix] 75 mg PO QDAY 04/07/21 04/07/[address] [DepaKOTE DR] 250 mg PO BID 04/07/21 04/07/21 Unknown History Gabapentin [Neurontin] 300 mg PO BID 04/07/21 04/07/21 Unknown History Memantine [Namenda] 10 mg PO BID 04/07/21 04/07/21 Unknown History Pantoprazole [Protonix] 40 mg PO QDAY 04/07/21 04/07/21 Unknown History QUEtiapine [SEROquel] 25 mg PO TID 04/07/21 04/07/21 Unknown History Sertraline [Zoloft] 100 mg PO QDAY 04/07/21 04/07/21 Unknown History donepeziL [Aricept] 5 mg PO QDAY 04/07/21 04/07/21 Unknown History traZODone [Desyrel] 50 mg PO QHS 04/07/21 04/07/21 Unknown History Active Meds: Active Medications Atorvastatin Calcium (Atorvastatin 40 Mg Tab) 40 mg PO QHS [facility] Last Admin: 04/13/21 21:07 Dose: 40 mg Documented by: Clopidogrel Bisulfate (Clopidogrel 75 Mg Tab) 75 mg PO QDAY [facility] Last Admin: 04/13/21 10:55 Dose: 75 mg Documented by: Donepezil HCl (Donepezil 5 Mg Tab) 5 mg PO QDAY [facility] Last Admin: 04/13/21 10:55 Dose: 5 mg Documented by: Gabapentin (Gabapentin 300 Mg Cap) 300 mg PO BID [facility] Last Admin: 04/13/21 21:07 Dose: 300 mg Documented by: Haloperidol Lactate (Haloperidol Lactate 5 Mg/1 Ml Inj) 5 mg IM Q6H PRN PRN Reason: Agitation Lorazepam (Lorazepam 2 Mg/Ml Vial) 2 mg IM Q6H PRN PRN Reason: Agitation Melatonin (Melatonin 5 Mg Tab) 5 mg PO QHS PRN PRN Reason: Sleep Last Admin: 04/11/21 21:48 Dose: 5 mg Documented by: Memantine (Memantine 10 Mg Tab) 10 mg PO BID [facility] Last Admin: 04/13/21 21:07 Dose: 10 mg Documented by: Mirtazapine (Mirtazapine 15 Mg Tab) 15 mg PO QHS [facility] Last Admin: 04/13/21 21:09 Dose: 15 mg Documented by: Pantoprazole Sodium (Pantoprazole 40 Mg Tab) 40 mg PO QDAY [facility] Last Admin: 04/13/21 10:55 Dose: 40 mg Documented by: Risperidone (Risperidone 1 Mg Tab) 1 mg PO BID [facility] Last Admin: 04/13/21 21:07 Dose: 1 mg Documented by: Sertraline HCl (Sertraline 100 Mg Tab) 100 mg PO QDAY [facility] Last Admin: 04/13/21 10:54 Dose: 100 mg Documented by: Trazodone HCl (Trazodone 50 Mg Tab) 50 mg PO QHS [facility] Last Admin: 04/13/21 21:07 Dose: 50 mg Documented by: Valproic Acid (Valproic Acid 250 Mg/5 Ml Oral Liqd) 125 mg PO TID [facility] Last Admin: 04/14/21 08:45 Dose: 125 mg Documented by: Results - Results Labs/Vitals: Laboratory Last Values WBC 9.8 K/mm3 (4.5-11.0) 04/08/21 22:55 RBC 5.14 M/mm3 (3.65-5.03) H 04/08/21 22:55 Hgb 17.0 gm/dl (11.8-15.2) H 04/08/21 22:55 Hct 49.3 % (35.5-45.6) H D 04/08/21 22:55 MCV 96 fl (84-94) H 04/08/21 22:55 MCH 33 pg (28-32) H 04/08/21 22:55 MCHC 35 % (32-34) H 04/08/21 22:55 RDW 13.1 % (13.2-15.2) L 04/08/21 22:55 Plt Count 249 K/mm3 (140-440) 04/08/21 22:55 Lymph % (Auto) 13.1 % (13.4-35.0) L 04/08/21 22:55 [place] % (Auto) 14.8 % (0.0-7.3) H 04/08/21 22:55 Eos % (Auto) 2.7 % (0.0-4.3) 04/08/21 22:55 Baso % (Auto) 0.5 % (0.0-1.8) 04/08/21 22:55 Lymph # (Auto) 1.3 K/mm3 (1.2-5.4) 04/08/21 22:55 [place] # (Auto) 1.4 K/mm3 (0.0-0.8) H 04/08/21 22:55 Eos # (Auto) 0.3 K/mm3 (0.0-0.4) 04/08/21 22:55 Baso # (Auto) 0.0 K/mm3 (0.0-0.1) 04/08/21 22:55 Seg Neutrophils % 68.9 % (40.0-70.0) 04/08/21 22:55 Seg Neutrophils # 6.7 K/mm3 (1.8-7.7) 04/08/21 22:55 Sodium 139 mmol/L (137-145) 04/08/21 22:55 Potassium 4.1 mmol/L (3.6-5.0) 04/08/21 22:55 Chloride 100.2 mmol/L (98-107) 04/08/21 22:55 Carbon Dioxide 21 mmol/L (22-30) L D 04/08/21 22:55 Anion Gap 22 mmol/L 04/08/21 22:55 BUN 18 mg/dL (9-20) 04/08/21 22:55 Creatinine 0.9 mg/dL (0.8-1.3) 04/08/21 22:55 Estimated GFR > 60 ml/min 04/08/21 22:55 BUN/Creatinine Ratio 20 % 04/08/21 22:55 Glucose 130 mg/dL (75-100) H 04/08/21 22:55 POC Glucose 113 mg/dL (70-105) H 04/07/21 22:48 Hemoglobin A1c 6.6 % (4-6) H 04/08/21 22:55 Calcium 8.9 mg/dL (8.4-10.2) 04/08/21 22:55 Magnesium 2.10 mg/dL (1.7-2.3) 04/08/21 22:55 Total Bilirubin 0.60 mg/dL (0.1-1.2) 04/08/21 22:55 AST 30 units/L (5-40) 04/08/21 22:55 ALT 17 units/L (7-56) 04/08/21 22:55 Alkaline Phosphatase 102 units/L (35-129) 04/08/21 22:55 Total Protein 6.7 g/dL (6.3-8.2) 04/08/21 22:55 Albumin 4.0 g/dL (3.9-5) 04/08/21 22:55 Albumin/Globulin Ratio 1.5 % 04/08/21 22:55 Triglycerides 100 mg/dL (2-149) 04/08/21 22:55 Cholesterol 130 mg/dL (50-199) 04/08/21 22:55 LDL Cholesterol Direct 62 mg/dL (50-130) 04/08/21 22:55 HDL Cholesterol 53 mg/dL (40-59) 04/08/21 22:55 Cholesterol/HDL Ratio 2.45 % 04/08/21 22:55 TSH 3.120 mlU/mL (0.270-4.200) 04/08/21 22:55 Last Vital Signs Temp 97.7 F 04/13/21 22:00 Pulse 70 04/13/21 22:00 Resp 18 04/13/21 22:00 BP 136/64 04/13/21 22:00 Pulse Ox 93 04/13/21 22:00
[2021-04-14] MEDS: risperiDONE 1 MG TAB PO SCH ×2 (10:59→21:14)
[2021-04-14] MEDS: MEMANTINE 10 MG TAB PO SCH ×2 (10:59→21:15)
[2021-04-14] MEDS: SERTRALINE 100 MG TAB PO SCH (10:59)
[2021-04-14] MEDS: GABAPENTIN 300 MG CAP PO SCH ×2 (10:59→21:15)
[2021-04-14] MEDS: CLOPIDOGREL 75 MG TAB PO SCH (10:59)
[2021-04-14] MEDS: PANTOPRAZOLE 40 MG TAB PO SCH (10:59)
[2021-04-14] MEDS: DONEPEZIL 5 MG TAB PO SCH (10:59)
[2021-04-14] MEDS: traZODone 50 MG TAB PO SCH (21:15)
[2021-04-14] MEDS: MIRTAZAPINE 15 MG TAB PO SCH (21:15)
--- NOTE | 2021-04-15 07:47 | Progress Note ---
Subjective Date of service: 04/15/21 Principal diagnosis: Dementia with Behavioral Disturbance Subjective Comment: Per Psych Nurse: pt is awake, alert, labile, irritable, and impulsive. Pt is confused and disorganized and difficult to redirect w/ ADL's. Pt is wandering around the unit and talking nonsensical to the other pt's and staff. pt slept through breakfast, but ate well at lunch and snack time. po fluids have been encouraged. Close monitoring continues. Psych Progress Patient with history of severe dementia hence poor historian. Patient awake and in bed, makes non sensible mumbling statements. Asked if he knows where he is patient states here, and then later mentioned hospital but states its because someones [place] is in the hospital . REVIEW OF SYSTEMS ROS cannot be reliably obtained from the patient due to his confusion MENTAL STATUS EXAMINATION General Appearance and Behavior: Age appropriate, good hygiene, wearing appropriate clothes, uncooperative polite with questioning. Cooperation: Withdrawn Psychomotor Behavior: Psychomotor agitation Mood: Affect and affective range: Flat Thought Process: Tangential, loose associattion Thought Content: Paranoid and confused Speech: Normal volume, Regular rate and rhythm, Intellectual Functioning: Poor Suicidal Ideation: N/A Homicidal Ideation: N/A Impulse Control: Unimpaired Insight and Judgment: Impaired Memory: memory impaired Attention:Distractible, Orientation: Alert, but disoriented and confused Assessment and Plan - Psychiatric problem (1) Dementia with behavioral disturbance Current Visit: Yes Status: Acute F03.91 Treatment Plan Continue current medications Patient admitted for inpatient psychiatric evaluation, medication adjustment and close monitoring The patient's behavior, mood, sleep and appetite will be closely monitored. Patient enrolled in individual and group therapeutic sessions and encouraged to attend. Patient provided with a safe and structured environment. Patient's physical health needs will be addressed by the Hospitalist. Hospitalist Consulted Labs including CBC, CMP, Lipid profile and Hemoglobin A1C levels ordered for baseline reference Social Assessment will be completed and the C S S Representative will work with patient and family to ensure a suitable and safe disposition Medication adjustment will be made as clinically indicated Usual Wellness Mu-Ism/Preservation: - Start Trazodone 50 mg po QHS & 50 mg po QHS PRN between 10 PM & 2 AM for insomnia - Start Melatonin 5 mg po QHS to promote circadian rhythm - Start [place]-3 for brain health, reduce impulsivity, and as adjunctive treatment for mood disorder, continue upon discharge given overall benefits. - Start B1 prophylaxis with 200 mg po for 5 days The patient agreed on the treatment plan, understood the risk, benefit, alternative treatment, potential consequence of no treatment, and gave informed consent. Initial Certification Inpatient psych services: I certify that the inpatient psychiatric services are required for treatment that could reasonably be expected to improve the patient's condition. Estimated days: 5 Post hospital care: primary care provider, psychiatric provider Medications and Allergies Allergies Allergy/AdvReac Type Severity Reaction Status Date / Time No Known Allergies Allergy Unverified 04/06/21 10:45 Home Medications Medication Instructions Recorded Confirmed Last Taken Type AtorvaSTATin [Lipitor] 40 mg PO QHS 04/07/21 04/07/21 Unknown History Clopidogrel [Plavix] 75 mg PO QDAY 04/07/21 04/07/[address] [DepaKOTE DR] 250 mg PO BID 04/07/21 04/07/21 Unknown History Gabapentin [Neurontin] 300 mg PO BID 04/07/21 04/07/21 Unknown History Memantine [Namenda] 10 mg PO BID 04/07/21 04/07/21 Unknown History Pantoprazole [Protonix] 40 mg PO QDAY 04/07/21 04/07/21 Unknown History QUEtiapine [SEROquel] 25 mg PO TID 04/07/21 04/07/21 Unknown History Sertraline [Zoloft] 100 mg PO QDAY 04/07/21 04/07/21 Unknown History donepeziL [Aricept] 5 mg PO QDAY 04/07/21 04/07/21 Unknown History traZODone [Desyrel] 50 mg PO QHS 04/07/21 04/07/21 Unknown History Active Meds: Active Medications Atorvastatin Calcium (Atorvastatin 40 Mg Tab) 40 mg PO QHS [facility] Last Admin: 04/14/21 21:15 Dose: 40 mg Documented by: Clopidogrel Bisulfate (Clopidogrel 75 Mg Tab) 75 mg PO QDAY [facility] Last Admin: 04/14/21 10:59 Dose: 75 mg Documented by: Donepezil HCl (Donepezil 5 Mg Tab) 5 mg PO QDAY [facility] Last Admin: 04/14/21 10:59 Dose: 5 mg Documented by: Gabapentin (Gabapentin 300 Mg Cap) 300 mg PO BID [facility] Last Admin: 04/14/21 21:15 Dose: 300 mg Documented by: Haloperidol Lactate (Haloperidol Lactate 5 Mg/1 Ml Inj) 5 mg IM Q6H PRN PRN Reason: Agitation Lorazepam (Lorazepam 2 Mg/Ml Vial) 2 mg IM Q6H PRN PRN Reason: Agitation Melatonin (Melatonin 5 Mg Tab) 5 mg PO QHS PRN PRN Reason: Sleep Last Admin: 04/11/21 21:48 Dose: 5 mg Documented by: Memantine (Memantine 10 Mg Tab) 10 mg PO BID [facility] Last Admin: 04/14/21 21:15 Dose: 10 mg Documented by: Mirtazapine (Mirtazapine 15 Mg Tab) 15 mg PO QHS [facility] Last Admin: 04/14/21 21:15 Dose: 15 mg Documented by: Pantoprazole Sodium (Pantoprazole 40 Mg Tab) 40 mg PO QDAY [facility] Last Admin: 04/14/21 10:59 Dose: 40 mg Documented by: Risperidone (Risperidone 1 Mg Tab) 1 mg PO BID [facility] Last Admin: 04/14/21 21:14 Dose: 1 mg Documented by: Sertraline HCl (Sertraline 100 Mg Tab) 100 mg PO QDAY [facility] Last Admin: 04/14/21 10:59 Dose: 100 mg Documented by: Trazodone HCl (Trazodone 50 Mg Tab) 50 mg PO QHS [facility] Last Admin: 04/14/21 21:15 Dose: 50 mg Documented by: Valproic Acid (Valproic Acid 250 Mg/5 Ml Oral Liqd) 125 mg PO TID [facility] Last Admin: 04/14/21 20:16 Dose: 125 mg Documented by: Results - Results Labs/Vitals: Laboratory Last Values WBC 9.8 K/mm3 (4.5-11.0) 04/08/21 22:55 RBC 5.14 M/mm3 (3.65-5.03) H 04/08/21 22:55 Hgb 17.0 gm/dl (11.8-15.2) H 04/08/21 22:55 Hct 49.3 % (35.5-45.6) H D 04/08/21 22:55 MCV 96 fl (84-94) H 04/08/21 22:55 MCH 33 pg (28-32) H 04/08/21 22:55 MCHC 35 % (32-34) H 04/08/21 22:55 RDW 13.1 % (13.2-15.2) L 04/08/21 22:55 Plt Count 249 K/mm3 (140-440) 04/08/21 22:55 Lymph % (Auto) 13.1 % (13.4-35.0) L 04/08/21 22:55 [place] % (Auto) 14.8 % (0.0-7.3) H 04/08/21 22:55 Eos % (Auto) 2.7 % (0.0-4.3) 04/08/21 22:55 Baso % (Auto) 0.5 % (0.0-1.8) 04/08/21 22:55 Lymph # (Auto) 1.3 K/mm3 (1.2-5.4) 04/08/21 22:55 [place] # (Auto) 1.4 K/mm3 (0.0-0.8) H 04/08/21 22:55 Eos # (Auto) 0.3 K/mm3 (0.0-0.4) 04/08/21 22:55 Baso # (Auto) 0.0 K/mm3 (0.0-0.1) 04/08/21 22:55 Seg Neutrophils % 68.9 % (40.0-70.0) 04/08/21 22:55 Seg Neutrophils # 6.7 K/mm3 (1.8-7.7) 04/08/21 22:55 Sodium 139 mmol/L (137-145) 04/08/21 22:55 Potassium 4.1 mmol/L (3.6-5.0) 04/08/21 22:55 Chloride 100.2 mmol/L (98-107) 04/08/21 22:55 Carbon Dioxide 21 mmol/L (22-30) L D 04/08/21 22:55 Anion Gap 22 mmol/L 04/08/21 22:55 BUN 18 mg/dL (9-20) 04/08/21 22:55 Creatinine 0.9 mg/dL (0.8-1.3) 04/08/21 22:55 Estimated GFR > 60 ml/min 04/08/21 22:55 BUN/Creatinine Ratio 20 % 04/08/21 22:55 Glucose 130 mg/dL (75-100) H 04/08/21 22:55 POC Glucose 113 mg/dL (70-105) H 04/07/21 22:48 Hemoglobin A1c 6.6 % (4-6) H 04/08/21 22:55 Calcium 8.9 mg/dL (8.4-10.2) 04/08/21 22:55 Magnesium 2.10 mg/dL (1.7-2.3) 04/08/21 22:55 Total Bilirubin 0.60 mg/dL (0.1-1.2) 04/08/21 22:55 AST 30 units/L (5-40) 04/08/21 22:55 ALT 17 units/L (7-56) 04/08/21 22:55 Alkaline Phosphatase 102 units/L (35-129) 04/08/21 22:55 Total Protein 6.7 g/dL (6.3-8.2) 04/08/21 22:55 Albumin 4.0 g/dL (3.9-5) 04/08/21 22:55 Albumin/Globulin Ratio 1.5 % 04/08/21 22:55 Triglycerides 100 mg/dL (2-149) 04/08/21 22:55 Cholesterol 130 mg/dL (50-199) 04/08/21 22:55 LDL Cholesterol Direct 62 mg/dL (50-130) 04/08/21 22:55 HDL Cholesterol 53 mg/dL (40-59) 04/08/21 22:55 Cholesterol/HDL Ratio 2.45 % 04/08/21 22:55 TSH 3.120 mlU/mL (0.270-4.200) 04/08/21 22:55 Last Vital Signs Temp 97.6 F 04/14/21 22:00 Pulse 56 L 04/14/21 22:00 Resp 18 04/14/21 22:00 BP 122/67 04/14/21 22:00 Pulse Ox 92 04/14/21 22:00
[2021-04-15] MEDS: SERTRALINE 100 MG TAB PO SCH (13:07)
[2021-04-15] MEDS: CLOPIDOGREL 75 MG TAB PO SCH (13:07)
[2021-04-15] MEDS: PANTOPRAZOLE 40 MG TAB PO SCH (13:08)
[2021-04-15] MEDS: risperiDONE 1 MG TAB PO SCH ×2 (13:08→21:22)
[2021-04-15] MEDS: MEMANTINE 10 MG TAB PO SCH ×2 (13:08→21:22)
[2021-04-15] MEDS: VALPROIC ACID 250 MG/5 ML ORAL LIQD PO SCH ×3 (13:08→20:17)
[2021-04-15] MEDS: DONEPEZIL 5 MG TAB PO SCH (13:08)
[2021-04-15] MEDS: GABAPENTIN 300 MG CAP PO SCH ×2 (13:09→21:22)
--- NOTE | 2021-04-15 19:23 | Progress Note ---
Assessment and Plan - Patient Problems (1) Vascular dementia Status: Acute Qualifiers: Dementia behavioral disturbance: with behavioral disturbance Qualified Cod e(s): F01.51 - Vascular dementia with behavioral disturbance Plan to address problem: Verbal prompting, verbal redirection, benzodiazepine therapy as clinically indicated, supportive care (2) Cerebral atherosclerosis Status: Acute Plan to address problem: Antiplatelet therapy, risk factor reduction, supportive care. (3) CAD (coronary artery disease) Status: Acute Plan to address problem: Risk factor reduction, statin therapy, low-cholesterol diet, (4) Hyperlipidemia Status: Acute Qualifiers: Hyperlipidemia type: mixed hyperlipidemia Qualified Code(s): E78.2 - Mixed hyperlipidemia Plan to address problem: Statin therapy, low-cholesterol diet, supportive care. (5) GERD (gastroesophageal reflux disease) Status: Acute Qualifiers: Esophagitis presence: without esophagitis Qualified Code(s): K21.9 - Gastro-esophageal reflux disease without esophagitis Plan to address problem: PPI therapy, bland diet. History Interval history: 75 YO Male with Vascular Dementia, Cerebral Atherosclerosis, GERD, HLD, CAD admitted to [facility] for psychiatric stabilization. Patient seen and evaluated in his room. Patient resting comfortably. No reported nursing events. Patient denies any new complaints. Hospitalist Physical - Constitutional Vitals: Temp Pulse Resp BP Pulse Ox 97.6 F 56 L 18 122/67 92 04/14/21 22:00 04/14/21 22:00 04/14/21 22:00 04/14/21 22:00 04/14/21 22:00 General appearance: Present: no acute distress - EENT Eyes: Present: PERRL ENT: hearing decreased - Neck Neck: Present: supple - Respiratory Respiratory effort: normal Respiratory: bilateral: CTA - Cardiovascular Rhythm: regular Heart Sounds: Present: S1 & S2 - Extremities Extremities: no ischemia Peripheral Pulses: within normal limits - Abdominal General gastrointestinal: soft, non-tender, non-distended - Integumentary Integumentary: Present: clear, dry - Psychiatric Psychiatric: cooperative - Neurologic Neurologic: CNII-XII intact Results - Labs CBC & Chem 7: 04/08/21 22:55 04/08/21 22:55 Labs: Laboratory Last Values WBC 9.8 K/mm3 (4.5-11.0) 04/08/21 22:55 RBC 5.14 M/mm3 (3.65-5.03) H 04/08/21 22:55 Hgb 17.0 gm/dl (11.8-15.2) H 04/08/21 22:55 Hct 49.3 % (35.5-45.6) H D 04/08/21 22:55 MCV 96 fl (84-94) H 04/08/21 22:55 MCH 33 pg (28-32) H 04/08/21 22:55 MCHC 35 % (32-34) H 04/08/21 22:55 RDW 13.1 % (13.2-15.2) L 04/08/21 22:55 Plt Count 249 K/mm3 (140-440) 04/08/21 22:55 Lymph % (Auto) 13.1 % (13.4-35.0) L 04/08/21 22:55 [place] % (Auto) 14.8 % (0.0-7.3) H 04/08/21 22:55 Eos % (Auto) 2.7 % (0.0-4.3) 04/08/21 22:55 Baso % (Auto) 0.5 % (0.0-1.8) 04/08/21 22:55 Lymph # (Auto) 1.3 K/mm3 (1.2-5.4) 04/08/21 22:55 [place] # (Auto) 1.4 K/mm3 (0.0-0.8) H 04/08/21 22:55 Eos # (Auto) 0.3 K/mm3 (0.0-0.4) 04/08/21 22:55 Baso # (Auto) 0.0 K/mm3 (0.0-0.1) 04/08/21 22:55 Seg Neutrophils % 68.9 % (40.0-70.0) 04/08/21 22:55 Seg Neutrophils # 6.7 K/mm3 (1.8-7.7) 04/08/21 22:55 Sodium 139 mmol/L (137-145) 04/08/21 22:55 Potassium 4.1 mmol/L (3.6-5.0) 04/08/21 22:55 Chloride 100.2 mmol/L (98-107) 04/08/21 22:55 Carbon Dioxide 21 mmol/L (22-30) L D 04/08/21 22:55 Anion Gap 22 mmol/L 04/08/21 22:55 BUN 18 mg/dL (9-20) 04/08/21 22:55 Creatinine 0.9 mg/dL (0.8-1.3) 04/08/21 22:55 Estimated GFR > 60 ml/min 04/08/21 22:55 BUN/Creatinine Ratio 20 % 04/08/21 22:55 Glucose 130 mg/dL (75-100) H 04/08/21 22:55 POC Glucose 113 mg/dL (70-105) H 04/07/21 22:48 Hemoglobin A1c 6.6 % (4-6) H 04/08/21 22:55 Calcium 8.9 mg/dL (8.4-10.2) 04/08/21 22:55 Magnesium 2.10 mg/dL (1.7-2.3) 04/08/21 22:55 Total Bilirubin 0.60 mg/dL (0.1-1.2) 04/08/21 22:55 AST 30 units/L (5-40) 04/08/21 22:55 ALT 17 units/L (7-56) 04/08/21 22:55 Alkaline Phosphatase 102 units/L (35-129) 04/08/21 22:55 Total Protein 6.7 g/dL (6.3-8.2) 04/08/21 22:55 Albumin 4.0 g/dL (3.9-5) 04/08/21 22:55 Albumin/Globulin Ratio 1.5 % 04/08/21 22:55 Triglycerides 100 mg/dL (2-149) 04/08/21 22:55 Cholesterol 130 mg/dL (50-199) 04/08/21 22:55 LDL Cholesterol Direct 62 mg/dL (50-130) 04/08/21 22:55 HDL Cholesterol 53 mg/dL (40-59) 04/08/21 22:55 Cholesterol/HDL Ratio 2.45 % 04/08/21 22:55 TSH 3.120 mlU/mL (0.270-4.200) 04/08/21 22:55 [place]/IV: Voiding Method Incontinent Active Medications - Current Medications Current Medications: Generic Name Dose Route Start Last Admin Trade Name Freq PRN Reason Stop Dose Admin Atorvastatin Calcium 40 mg 04/08/21 22:00 04/14/21 21:15 Atorvastatin 40 Mg Tab PO 40 mg QHS RUKHSANA Administration Clopidogrel Bisulfate 75 mg 04/08/21 10:00 04/15/21 13:07 Clopidogrel 75 Mg Tab PO 75 mg QDAY RUKHSANA Administration Donepezil HCl 5 mg 04/08/21 10:00 04/15/21 13:08 Donepezil 5 Mg Tab PO 5 mg QDAY RUKHSANA Administration Gabapentin 300 mg 04/08/21 10:00 04/15/21 13:09 Gabapentin 300 Mg Cap PO 300 mg BID RUKHSANA Administration Haloperidol Lactate 5 mg 04/07/21 19:49 Haloperidol Lactate 5 Mg/1 Ml Inj IM Q6H PRN Agitation Lorazepam 2 mg 04/07/21 19:47 Lorazepam 2 Mg/Ml Vial IM Q6H PRN Agitation Melatonin 5 mg 04/07/21 17:51 04/11/21 21:48 Melatonin 5 Mg Tab PO 5 mg QHS PRN Administration Sleep Memantine 10 mg 04/08/21 10:00 04/15/21 13:08 Memantine 10 Mg Tab PO 10 mg BID RUKHSANA Administration Mirtazapine 15 mg 04/07/21 22:00 04/14/21 21:15 Mirtazapine 15 Mg Tab PO 15 mg QHS RUKHSANA Administration Pantoprazole Sodium 40 mg 04/08/21 10:00 04/15/21 13:08 Pantoprazole 40 Mg Tab PO 40 mg QDAY RUKHSANA Administration Risperidone 1 mg 04/13/21 11:00 04/15/21 13:08 Risperidone 1 Mg Tab PO 1 mg BID RUKHSANA Administration Sertraline HCl 100 mg 04/08/21 10:00 04/15/21 13:07 Sertraline 100 Mg Tab PO 100 mg QDAY RUKHSANA Administration Trazodone HCl 50 mg 04/08/21 22:00 04/14/21 21:15 Trazodone 50 Mg Tab PO 50 mg QHS RUKHSANA Administration Valproic Acid 125 mg 04/13/21 14:00 04/15/21 17:36 Valproic Acid 250 Mg/5 Ml Oral Liqd PO 125 mg TID RUKHSANA Administration Nutrition/Malnutrition Assess - Dietary Evaluation Nutrition/Malnutrition Findings: Nutrition Notes Start: 04/14/21 12:42 Freq: Status: Active Protocol: Document 04/14/21 12:42 MK (Rec: 04/14/21 12:46 KAYLEEN [id number]) Nutrition Notes Need for Assessment generated from: LOS Initial or Follow up Assessment Other Pertinent Diagnosis dementia with behavioral disturbance Current Diet Cardiac, Consistent CHO Labs/Tests No recent labs Pertinent Medications Reviewed Height 5 ft 5 in Weight 65.77 kg [place] Body Weight (kg) 61.81 BMI 24.1 Weight Status Appropriate Subjective/Other Information Screen for LOS. Unable to gain access to floor. Pt eating 10 -75% of meals. Burn Absent Trauma Absent Current % PO Poor (25-49%) Minimum of two criteria No physical signs of malnutrition #1 Nutrition Diagnosis Inadequate energy intake Etiology dementia As Evidenced by Signs and Symptoms pt eating 10-75% of meals Is patient on ventilator? No Is Patient Ambulatory and/or Out of Bed Yes [facility]B) [ 1702.454 [id number]] Calculation Used for Recommendations [facility] Additional Notes Protein: (1-1.2g/kg) 66-79g Fluid: 1 ml/kcal or per MD Nutrition Intervention Change Diet Order: Continue Add Supplement/Snack (indicate name/kcal Glucerna BID /protein ) Provides kCal: 440 Provides Protein (gm) 20 Goal #1 Meet at least 75% of protein and energy needs via PO and ONS intakes Anticipated Discharge Needs: Cardiac, Consistent CHO with ONS PRN Follow-Up By: 04/18/21 Additional Comments FU for intakes and ONS tolerance
[2021-04-15] MEDS: MIRTAZAPINE 15 MG TAB PO SCH (21:22)
[2021-04-15] MEDS: traZODone 50 MG TAB PO SCH (21:22)
[2021-04-16] MEDS: VALPROIC ACID 250 MG/5 ML ORAL LIQD PO SCH ×3 (10:55→20:45)
--- NOTE | 2021-04-16 11:08 | Progress Note ---
Subjective Date of service: 04/16/21 Principal diagnosis: Dementia with Behavioral Disturbance Subjective Comment: Per Psych Nurse: pt spent the evening wandering in the activity room, alert and oriented to person, calm, confused, disorganized thought process, less resistive with care, confused, good appetite, medication crushed and given in juice, no distress noted, will continue to monitor for safety. Psych Progress Patient with history of severe dementia hence poor historian. Patient in bed, sleeping but alert to loud verbal stimuli. Will not disturb. REVIEW OF SYSTEMS ROS cannot be reliably obtained from the patient due to his confusion MENTAL STATUS EXAMINATION General Appearance and Behavior: Age appropriate, good hygiene, wearing appropriate clothes, uncooperative polite with questioning. Cooperation: Withdrawn Psychomotor Behavior: Psychomotor agitation Mood: Affect and affective range: Flat Thought Process: Tangential, loose associattion Thought Content: Paranoid and confused Speech: Normal volume, Regular rate and rhythm, Intellectual Functioning: Poor Suicidal Ideation: N/A Homicidal Ideation: N/A Impulse Control: Unimpaired Insight and Judgment: Impaired Memory: memory impaired Attention:Distractible, Orientation: Alert, but disoriented and confused Assessment and Plan - Psychiatric problem (1) Dementia with behavioral disturbance Current Visit: Yes Status: Acute F03.91 Treatment Plan Continue current medications Patient admitted for inpatient psychiatric evaluation, medication adjustment and close monitoring The patient's behavior, mood, sleep and appetite will be closely monitored. Patient enrolled in individual and group therapeutic sessions and encouraged to attend. Patient provided with a safe and structured environment. Patient's physical health needs will be addressed by the Hospitalist. Hospitalist Consulted Labs including CBC, CMP, Lipid profile and Hemoglobin A1C levels ordered for baseline reference Social Assessment will be completed and the Occupational Medicine Physician will work with patient and family to ensure a suitable and safe disposition Medication adjustment will be made as clinically indicated Usual Wellness [employer]/Preservation: - Start Trazodone 50 mg po QHS & 50 mg po QHS PRN between 10 PM & 2 AM for insomnia - Start Melatonin 5 mg po QHS to promote circadian rhythm - Start [place]-3 for brain health, reduce impulsivity, and as adjunctive treatment for mood disorder, continue upon discharge given overall benefits. - Start B1 prophylaxis with 200 mg po for 5 days The patient agreed on the treatment plan, understood the risk, benefit, alternative treatment, potential consequence of no treatment, and gave informed consent. Initial Certification Inpatient psych services: I certify that the inpatient psychiatric services are required for treatment that could reasonably be expected to improve the patient's condition. Estimated days: 4 Post hospital care: primary care provider, psychiatric provider Medications and Allergies Allergies Allergy/AdvReac Type Severity Reaction Status Date / Time No Known Allergies Allergy Unverified 04/06/21 10:45 Home Medications Medication Instructions Recorded Confirmed Last Taken Type AtorvaSTATin [Lipitor] 40 mg PO QHS 04/07/21 04/07/21 Unknown History Clopidogrel [Plavix] 75 mg PO QDAY 04/07/21 04/07/[address] [DepaKOTE DR] 250 mg PO BID 04/07/21 04/07/21 Unknown History Gabapentin [Neurontin] 300 mg PO BID 04/07/21 04/07/21 Unknown History Memantine [Namenda] 10 mg PO BID 04/07/21 04/07/21 Unknown History Pantoprazole [Protonix] 40 mg PO QDAY 04/07/21 04/07/21 Unknown History QUEtiapine [SEROquel] 25 mg PO TID 04/07/21 04/07/21 Unknown History Sertraline [Zoloft] 100 mg PO QDAY 04/07/21 04/07/21 Unknown History donepeziL [Aricept] 5 mg PO QDAY 04/07/21 04/07/21 Unknown History traZODone [Desyrel] 50 mg PO QHS 04/07/21 04/07/21 Unknown History Active Meds: Active Medications Atorvastatin Calcium (Atorvastatin 40 Mg Tab) 40 mg PO QHS [facility] Last Admin: 04/15/21 21:22 Dose: 40 mg Documented by: Clopidogrel Bisulfate (Clopidogrel 75 Mg Tab) 75 mg PO QDAY [facility] Last Admin: 04/15/21 13:07 Dose: 75 mg Documented by: Donepezil HCl (Donepezil 5 Mg Tab) 5 mg PO QDAY [facility] Last Admin: 04/15/21 13:08 Dose: 5 mg Documented by: Gabapentin (Gabapentin 300 Mg Cap) 300 mg PO BID [facility] Last Admin: 04/15/21 21:22 Dose: 300 mg Documented by: Haloperidol Lactate (Haloperidol Lactate 5 Mg/1 Ml Inj) 5 mg IM Q6H PRN PRN Reason: Agitation Lorazepam (Lorazepam 2 Mg/Ml Vial) 2 mg IM Q6H PRN PRN Reason: Agitation Melatonin (Melatonin 5 Mg Tab) 5 mg PO QHS PRN PRN Reason: Sleep Last Admin: 04/11/21 21:48 Dose: 5 mg Documented by: Memantine (Memantine 10 Mg Tab) 10 mg PO BID [facility] Last Admin: 04/15/21 21:22 Dose: 10 mg Documented by: Mirtazapine (Mirtazapine 15 Mg Tab) 15 mg PO QHS [facility] Last Admin: 04/15/21 21:22 Dose: 15 mg Documented by: Pantoprazole Sodium (Pantoprazole 40 Mg Tab) 40 mg PO QDAY [facility] Last Admin: 04/15/21 13:08 Dose: 40 mg Documented by: Risperidone (Risperidone 1 Mg Tab) 1 mg PO BID [facility] Last Admin: 04/15/21 21:22 Dose: 1 mg Documented by: Sertraline HCl (Sertraline 100 Mg Tab) 100 mg PO QDAY [facility] Last Admin: 04/15/21 13:07 Dose: 100 mg Documented by: Trazodone HCl (Trazodone 50 Mg Tab) 50 mg PO QHS [facility] Last Admin: 04/15/21 21:22 Dose: 50 mg Documented by: Valproic Acid (Valproic Acid 250 Mg/5 Ml Oral Liqd) 125 mg PO TID [facility] Last Admin: 04/15/21 20:17 Dose: 125 mg Documented by: Results - Results Labs/Vitals: Laboratory Last Values WBC 9.8 K/mm3 (4.5-11.0) 04/08/21 22:55 RBC 5.14 M/mm3 (3.65-5.03) H 04/08/21 22:55 Hgb 17.0 gm/dl (11.8-15.2) H 04/08/21 22:55 Hct 49.3 % (35.5-45.6) H D 04/08/21 22:55 MCV 96 fl (84-94) H 04/08/21 22:55 MCH 33 pg (28-32) H 04/08/21 22:55 MCHC 35 % (32-34) H 04/08/21 22:55 RDW 13.1 % (13.2-15.2) L 04/08/21 22:55 Plt Count 249 K/mm3 (140-440) 04/08/21 22:55 Lymph % (Auto) 13.1 % (13.4-35.0) L 04/08/21 22:55 [place] % (Auto) 14.8 % (0.0-7.3) H 04/08/21 22:55 Eos % (Auto) 2.7 % (0.0-4.3) 04/08/21 22:55 Baso % (Auto) 0.5 % (0.0-1.8) 04/08/21 22:55 Lymph # (Auto) 1.3 K/mm3 (1.2-5.4) 04/08/21 22:55 [place] # (Auto) 1.4 K/mm3 (0.0-0.8) H 04/08/21 22:55 Eos # (Auto) 0.3 K/mm3 (0.0-0.4) 04/08/21 22:55 Baso # (Auto) 0.0 K/mm3 (0.0-0.1) 04/08/21 22:55 Seg Neutrophils % 68.9 % (40.0-70.0) 04/08/21 22:55 Seg Neutrophils # 6.7 K/mm3 (1.8-7.7) 04/08/21 22:55 Sodium 139 mmol/L (137-145) 04/08/21 22:55 Potassium 4.1 mmol/L (3.6-5.0) 04/08/21 22:55 Chloride 100.2 mmol/L (98-107) 04/08/21 22:55 Carbon Dioxide 21 mmol/L (22-30) L D 04/08/21 22:55 Anion Gap 22 mmol/L 04/08/21 22:55 BUN 18 mg/dL (9-20) 04/08/21 22:55 Creatinine 0.9 mg/dL (0.8-1.3) 04/08/21 22:55 Estimated GFR > 60 ml/min 04/08/21 22:55 BUN/Creatinine Ratio 20 % 04/08/21 22:55 Glucose 130 mg/dL (75-100) H 04/08/21 22:55 POC Glucose 113 mg/dL (70-105) H 04/07/21 22:48 Hemoglobin A1c 6.6 % (4-6) H 04/08/21 22:55 Calcium 8.9 mg/dL (8.4-10.2) 04/08/21 22:55 Magnesium 2.10 mg/dL (1.7-2.3) 04/08/21 22:55 Total Bilirubin 0.60 mg/dL (0.1-1.2) 04/08/21 22:55 AST 30 units/L (5-40) 04/08/21 22:55 ALT 17 units/L (7-56) 04/08/21 22:55 Alkaline Phosphatase 102 units/L (35-129) 04/08/21 22:55 Total Protein 6.7 g/dL (6.3-8.2) 04/08/21 22:55 Albumin 4.0 g/dL (3.9-5) 04/08/21 22:55 Albumin/Globulin Ratio 1.5 % 04/08/21 22:55 Triglycerides 100 mg/dL (2-149) 04/08/21 22:55 Cholesterol 130 mg/dL (50-199) 04/08/21 22:55 LDL Cholesterol Direct 62 mg/dL (50-130) 04/08/21 22:55 HDL Cholesterol 53 mg/dL (40-59) 04/08/21 22:55 Cholesterol/HDL Ratio 2.45 % 04/08/21 22:55 TSH 3.120 mlU/mL (0.270-4.200) 04/08/21 22:55 Last Vital Signs Temp 97.5 F L 04/15/21 19:32 Pulse 71 04/15/21 19:33 Resp 17 04/15/21 19:32 BP 109/65 04/15/21 19:32 Pulse Ox 93 04/15/21 19:33
[2021-04-16] MEDS: MEMANTINE 10 MG TAB PO SCH ×2 (15:24→21:32)
[2021-04-16] MEDS: GABAPENTIN 300 MG CAP PO SCH ×2 (15:24→21:32)
[2021-04-16] MEDS: PANTOPRAZOLE 40 MG TAB PO SCH (15:25)
[2021-04-16] MEDS: risperiDONE 1 MG TAB PO SCH ×2 (15:25→21:32)
[2021-04-16] MEDS: SERTRALINE 100 MG TAB PO SCH (15:25)
[2021-04-16] MEDS: CLOPIDOGREL 75 MG TAB PO SCH (15:25)
[2021-04-16] MEDS: DONEPEZIL 5 MG TAB PO SCH (15:25)
[2021-04-16] MEDS: traZODone 50 MG TAB PO SCH (21:32)
[2021-04-16] MEDS: MIRTAZAPINE 15 MG TAB PO SCH (21:32)
--- NOTE | 2021-04-17 08:14 | Progress Note ---
Subjective Date of service: 04/17/21 Principal diagnosis: Dementia with Behavioral Disturbance Subjective Comment: Per ER Note: Pt is visible on the unit A&OX1. Observed to very confused, seeking exit aeb attempting to open every door. No acute distress observed. Will continue to monitor. The patient was seen today. He is lying in bed asleep but easily arouses. He is more alert and talkative today than previous days I saw him. He says he doesn't feel so well because he is tired. He says he slept good. The patient denies SI/HI or hallucinations of any kind. He says "no, no" to both questions. Reason for continued inpatient treatment: The is likely at his baseline. He will likely not have any further improvement as far as his mental health is concerned. The patient will discharge once the social director sets up outpatient resources and plan with family REVIEW OF SYSTEMS ROS cannot be reliably obtained from the patient due to his mental state MENTAL STATUS EXAMINATION Unable to assess Diagnoses Dementia with Behavioral Disturbance Treatment Plan Patient admitted for inpatient psychiatric evaluation, medication adjustment and close monitoring The patient's behavior, mood, sleep and appetite will be closely monitored. Patient enrolled in individual and group therapeutic sessions and encouraged to attend. Patient provided with a safe and structured environment. Patient's physical health needs will be addressed by the Hospitalist. Hospitalist Consulted Labs including CBC, CMP, Lipid profile and Hemoglobin A1C levels ordered for baseline reference Social Assessment will be completed and the Scout Sniper will work with patient and family to ensure a suitable and safe disposition Medication adjustment will be made as clinically indicated No changes made today Usual Wellness Buddhism/Preservation: - Start Trazodone 50 mg po QHS & 50 mg po QHS PRN between 10 PM & 2 AM for insomnia - Start Melatonin 5 mg po QHS to promote circadian rhythm - Start [place]-3 for brain health, reduce impulsivity, and as adjunctive treatment for mood disorder, continue upon discharge given overall benefits. - Start B1 prophylaxis with 200 mg po for 5 days The patient agreed on the treatment plan, understood the risk, benefit, alternative treatment, potential consequence of no treatment, and gave informed consent. Estimated days: 1 Post hospital care: primary care provider, psychiatric provider Medications and Allergies Allergies Allergy/AdvReac Type Severity Reaction Status Date / Time No Known Allergies Allergy Unverified 04/06/21 10:45 Home Medications Medication Instructions Recorded Confirmed Last Taken Type AtorvaSTATin [Lipitor] 40 mg PO QHS 04/07/21 04/07/21 Unknown History Clopidogrel [Plavix] 75 mg PO QDAY 04/07/21 04/07/21 Unknown History Divalproex [Sanket GARCIA] 250 mg PO BID 04/07/21 04/07/21 Unknown History Gabapentin [Neurontin] 300 mg PO BID 04/07/21 04/07/21 Unknown History Memantine [Namenda] 10 mg PO BID 04/07/21 04/07/21 Unknown History Pantoprazole [Protonix] 40 mg PO QDAY 04/07/21 04/07/21 Unknown History QUEtiapine [SEROquel] 25 mg PO TID 04/07/21 04/07/21 Unknown History Sertraline [Zoloft] 100 mg PO QDAY 04/07/21 04/07/21 Unknown History donepeziL [Aricept] 5 mg PO QDAY 04/07/21 04/07/21 Unknown History traZODone [Desyrel] 50 mg PO QHS 04/07/21 04/07/21 Unknown History Active Meds: Active Medications Atorvastatin Calcium (Atorvastatin 40 Mg Tab) 40 mg PO QHS [facility] Last Admin: 04/16/21 21:32 Dose: 40 mg Documented by: Clopidogrel Bisulfate (Clopidogrel 75 Mg Tab) 75 mg PO QDAY [facility] Last Admin: 04/16/21 15:25 Dose: 75 mg Documented by: Donepezil HCl (Donepezil 5 Mg Tab) 5 mg PO QDAY [facility] Last Admin: 04/16/21 15:25 Dose: 5 mg Documented by: Gabapentin (Gabapentin 300 Mg Cap) 300 mg PO BID [facility] Last Admin: 04/16/21 21:32 Dose: 300 mg Documented by: Haloperidol Lactate (Haloperidol Lactate 5 Mg/1 Ml Inj) 5 mg IM Q6H PRN PRN Reason: Agitation Lorazepam (Lorazepam 2 Mg/Ml Vial) 2 mg IM Q6H PRN PRN Reason: Agitation Melatonin (Melatonin 5 Mg Tab) 5 mg PO QHS PRN PRN Reason: Sleep Last Admin: 04/11/21 21:48 Dose: 5 mg Documented by: Memantine (Memantine 10 Mg Tab) 10 mg PO BID [facility] Last Admin: 04/16/21 21:32 Dose: 10 mg Documented by: Mirtazapine (Mirtazapine 15 Mg Tab) 15 mg PO QHS [facility] Last Admin: 04/16/21 21:32 Dose: 15 mg Documented by: Pantoprazole Sodium (Pantoprazole 40 Mg Tab) 40 mg PO QDAY [facility] Last Admin: 04/16/21 15:25 Dose: 40 mg Documented by: Risperidone (Risperidone 1 Mg Tab) 1 mg PO BID [facility] Last Admin: 04/16/21 21:32 Dose: 1 mg Documented by: Sertraline HCl (Sertraline 100 Mg Tab) 100 mg PO QDAY [facility] Last Admin: 04/16/21 15:25 Dose: 100 mg Documented by: Trazodone HCl (Trazodone 50 Mg Tab) 50 mg PO QHS [facility] Last Admin: 04/16/21 21:32 Dose: 50 mg Documented by: Valproic Acid (Valproic Acid 250 Mg/5 Ml Oral Liqd) 125 mg PO TID [facility] Last Admin: 04/16/21 20:45 Dose: 125 mg Documented by: Results - Results Labs/Vitals: Laboratory Last Values WBC 9.8 K/mm3 (4.5-11.0) 04/08/21 22:55 RBC 5.14 M/mm3 (3.65-5.03) H 04/08/21 22:55 Hgb 17.0 gm/dl (11.8-15.2) H 04/08/21 22:55 Hct 49.3 % (35.5-45.6) H D 04/08/21 22:55 MCV 96 fl (84-94) H 04/08/21 22:55 MCH 33 pg (28-32) H 04/08/21 22:55 MCHC 35 % (32-34) H 04/08/21 22:55 RDW 13.1 % (13.2-15.2) L 04/08/21 22:55 Plt Count 249 K/mm3 (140-440) 04/08/21 22:55 Lymph % (Auto) 13.1 % (13.4-35.0) L 04/08/21 22:55 [place] % (Auto) 14.8 % (0.0-7.3) H 04/08/21 22:55 Eos % (Auto) 2.7 % (0.0-4.3) 04/08/21 22:55 Baso % (Auto) 0.5 % (0.0-1.8) 04/08/21 22:55 Lymph # (Auto) 1.3 K/mm3 (1.2-5.4) 04/08/21 22:55 [place] # (Auto) 1.4 K/mm3 (0.0-0.8) H 04/08/21 22:55 Eos # (Auto) 0.3 K/mm3 (0.0-0.4) 04/08/21 22:55 Baso # (Auto) 0.0 K/mm3 (0.0-0.1) 04/08/21 22:55 Seg Neutrophils % 68.9 % (40.0-70.0) 04/08/21 22:55 Seg Neutrophils # 6.7 K/mm3 (1.8-7.7) 04/08/21 22:55 Sodium 139 mmol/L (137-145) 04/08/21 22:55 Potassium 4.1 mmol/L (3.6-5.0) 04/08/21 22:55 Chloride 100.2 mmol/L (98-107) 04/08/21 22:55 Carbon Dioxide 21 mmol/L (22-30) L D 04/08/21 22:55 Anion Gap 22 mmol/L 04/08/21 22:55 BUN 18 mg/dL (9-20) 04/08/21 22:55 Creatinine 0.9 mg/dL (0.8-1.3) 04/08/21 22:55 Estimated GFR > 60 ml/min 04/08/21 22:55 BUN/Creatinine Ratio 20 % 04/08/21 22:55 Glucose 130 mg/dL (75-100) H 04/08/21 22:55 POC Glucose 113 mg/dL (70-105) H 04/07/21 22:48 Hemoglobin A1c 6.6 % (4-6) H 04/08/21 22:55 Calcium 8.9 mg/dL (8.4-10.2) 04/08/21 22:55 Magnesium 2.10 mg/dL (1.7-2.3) 04/08/21 22:55 Total Bilirubin 0.60 mg/dL (0.1-1.2) 04/08/21 22:55 AST 30 units/L (5-40) 04/08/21 22:55 ALT 17 units/L (7-56) 04/08/21 22:55 Alkaline Phosphatase 102 units/L (35-129) 04/08/21 22:55 Total Protein 6.7 g/dL (6.3-8.2) 04/08/21 22:55 Albumin 4.0 g/dL (3.9-5) 04/08/21 22:55 Albumin/Globulin Ratio 1.5 % 04/08/21 22:55 Triglycerides 100 mg/dL (2-149) 04/08/21 22:55 Cholesterol 130 mg/dL (50-199) 04/08/21 22:55 LDL Cholesterol Direct 62 mg/dL (50-130) 04/08/21 22:55 HDL Cholesterol 53 mg/dL (40-59) 04/08/21 22:55 Cholesterol/HDL Ratio 2.45 % 04/08/21 22:55 TSH 3.120 mlU/mL (0.270-4.200) 04/08/21 22:55 Last Vital Signs Temp 97.8 F 04/16/21 21: Pulse 87 04/16/21 21:21 Resp 20 04/16/21 21:21 BP 100/60 04/16/21 21:21 Pulse Ox 91 04/16/21 22:00
[2021-04-17] MEDS: VALPROIC ACID 250 MG/5 ML ORAL LIQD PO SCH ×3 (12:34→21:58)
[2021-04-17] MEDS: DONEPEZIL 5 MG TAB PO SCH (14:35)
[2021-04-17] MEDS: MEMANTINE 10 MG TAB PO SCH ×2 (14:35→21:59)
[2021-04-17] MEDS: risperiDONE 1 MG TAB PO SCH ×2 (14:35→21:59)
[2021-04-17] MEDS: PANTOPRAZOLE 40 MG TAB PO SCH (14:35)
[2021-04-17] MEDS: CLOPIDOGREL 75 MG TAB PO SCH (14:35)
[2021-04-17] MEDS: GABAPENTIN 300 MG CAP PO SCH ×2 (14:35→21:59)
[2021-04-17] MEDS: SERTRALINE 100 MG TAB PO SCH (14:36)
[2021-04-17] MEDS: MIRTAZAPINE 15 MG TAB PO SCH (21:59)
[2021-04-17] MEDS: traZODone 50 MG TAB PO SCH (21:59)
--- NOTE | 2021-04-18 07:44 | Progress Note ---
Subjective Date of service: 04/18/21 Principal diagnosis: Dementia with Behavioral Disturbance Subjective Comment: Per Psych Nurse [id number] patient incontinent of feces, staff attempted to assist patient with ADL's patient became combative cursing and attempting to punch and kick staff. Security was called for support with patient, patient accepted PRN 2mg of Ativan IM, will continue to monitor. Psych Progress Nurse reports patient had an eventful night, defeacated on self and walked around facility with poop, was not easily redirectable when nurse attempted to care for patient. Patient in room this AM, sleeping. REVIEW OF SYSTEMS ROS cannot be reliably obtained from the patient due to his confusion MENTAL STATUS EXAMINATION General Appearance and Behavior: Age appropriate, good hygiene, wearing appropriate clothes, uncooperative polite with questioning. Cooperation: Withdrawn Psychomotor Behavior: Psychomotor agitation Mood: Affect and affective range: Flat Thought Process: Tangential, loose associattion Thought Content: Paranoid and confused Speech: Normal volume, Regular rate and rhythm, Intellectual Functioning: Poor Suicidal Ideation: N/A Homicidal Ideation: N/A Impulse Control: Unimpaired Insight and Judgment: Impaired Memory: memory impaired Attention:Distractible, Orientation: Alert, but disoriented and confused Assessment and Plan - Psychiatric problem (1) Dementia with behavioral disturbance Current Visit: Yes Status: Acute F03.91 Treatment Plan Continue current medications, will increase risperidone Patient admitted for inpatient psychiatric evaluation, medication adjustment and close monitoring The patient's behavior, mood, sleep and appetite will be closely monitored. Patient enrolled in individual and group therapeutic sessions and encouraged to attend. Patient provided with a safe and structured environment. Patient's physical health needs will be addressed by the Hospitalist. Hospitalist Consulted Labs including CBC, CMP, Lipid profile and Hemoglobin A1C levels ordered for baseline reference Social Assessment will be completed and the Carry Out Clerk And Shelf Stocker will work with patient and family to ensure a suitable and safe disposition Medication adjustment will be made as clinically indicated Usual Wellness Anabaptist/Preservation: - Start Trazodone 50 mg po QHS & 50 mg po QHS PRN between 10 PM & 2 AM for insomnia - Start Melatonin 5 mg po QHS to promote circadian rhythm - Start [place]-3 for brain health, reduce impulsivity, and as adjunctive treatment for mood disorder, continue upon discharge given overall benefits. - Start B1 prophylaxis with 200 mg po for 5 days The patient agreed on the treatment plan, understood the risk, benefit, alternative treatment, potential consequence of no treatment, and gave informed consent. Initial Certification Inpatient psych services: I certify that the inpatient psychiatric services are required for treatment that could reasonably be expected to improve the patient's condition. Estimated days: 3 Post hospital care: primary care provider, psychiatric provider Medications and Allergies Allergies Allergy/AdvReac Type Severity Reaction Status Date / Time No Known Allergies Allergy Unverified 04/06/21 10:45 Home Medications Medication Instructions Recorded Confirmed Last Taken Type AtorvaSTATin [Lipitor] 40 mg PO QHS 04/07/21 04/07/21 Unknown History Clopidogrel [Plavix] 75 mg PO QDAY 04/07/21 04/07/[address] [DepaKOTE DR] 250 mg PO BID 04/07/21 04/07/21 Unknown History Gabapentin [Neurontin] 300 mg PO BID 04/07/21 04/07/21 Unknown History Memantine [Namenda] 10 mg PO BID 04/07/21 04/07/21 Unknown History Pantoprazole [Protonix] 40 mg PO QDAY 04/07/21 04/07/21 Unknown History QUEtiapine [SEROquel] 25 mg PO TID 04/07/21 04/07/21 Unknown History Sertraline [Zoloft] 100 mg PO QDAY 04/07/21 04/07/21 Unknown History donepeziL [Aricept] 5 mg PO QDAY 04/07/21 04/07/21 Unknown History traZODone [Desyrel] 50 mg PO QHS 04/07/21 04/07/21 Unknown History Active Meds: Active Medications Atorvastatin Calcium (Atorvastatin 40 Mg Tab) 40 mg PO QHS COUNTS INCLUDE 234 BEDS AT THE [facility] Last Admin: 04/17/21 21:59 Dose: 40 mg Documented by: Clopidogrel Bisulfate (Clopidogrel 75 Mg Tab) 75 mg PO QDAY COUNTS INCLUDE 234 BEDS AT THE [facility] Last Admin: 04/17/21 14:35 Dose: 75 mg Documented by: Donepezil HCl (Donepezil 5 Mg Tab) 5 mg PO QDAY COUNTS INCLUDE 234 BEDS AT THE [facility] Last Admin: 04/17/21 14:35 Dose: 5 mg Documented by: Gabapentin (Gabapentin 300 Mg Cap) 300 mg PO BID COUNTS INCLUDE 234 BEDS AT THE [facility] Last Admin: 04/17/21 21:59 Dose: 300 mg Documented by: Haloperidol Lactate (Haloperidol Lactate 5 Mg/1 Ml Inj) 5 mg IM Q6H PRN PRN Reason: Agitation Lorazepam (Lorazepam 2 Mg/Ml Vial) 2 mg IM Q6H PRN PRN Reason: Agitation Last Admin: 04/18/21 00:30 Dose: 2 mg Documented by: Melatonin (Melatonin 5 Mg Tab) 5 mg PO QHS PRN PRN Reason: Sleep Last Admin: 04/11/21 21:48 Dose: 5 mg Documented by: Memantine (Memantine 10 Mg Tab) 10 mg PO BID COUNTS INCLUDE 234 BEDS AT THE [facility] Last Admin: 04/17/21 21:59 Dose: 10 mg Documented by: Mirtazapine (Mirtazapine 15 Mg Tab) 15 mg PO QHS COUNTS INCLUDE 234 BEDS AT THE [facility] Last Admin: 04/17/21 21:59 Dose: 15 mg Documented by: Pantoprazole Sodium (Pantoprazole 40 Mg Tab) 40 mg PO QDAY COUNTS INCLUDE 234 BEDS AT THE [facility] Last Admin: 04/17/21 14:35 Dose: 40 mg Documented by: Risperidone (Risperidone 1 Mg Tab) 1 mg PO BID COUNTS INCLUDE 234 BEDS AT THE [facility] Last Admin: 04/17/21 21:59 Dose: 1 mg Documented by: Sertraline HCl (Sertraline 100 Mg Tab) 100 mg PO QDAY COUNTS INCLUDE 234 BEDS AT THE [facility] Last Admin: 04/17/21 14:36 Dose: 100 mg Documented by: Trazodone HCl (Trazodone 50 Mg Tab) 50 mg PO QHS COUNTS INCLUDE 234 BEDS AT THE [facility] Last Admin: 04/17/21 21:59 Dose: 50 mg Documented by: Valproic Acid (Valproic Acid 250 Mg/5 Ml Oral Liqd) 125 mg PO TID COUNTS INCLUDE 234 BEDS AT THE [facility] Last Admin: 04/17/21 21:58 Dose: 125 mg Documented by: Results - Results Labs/Vitals: Laboratory Last Values WBC 9.8 K/mm3 (4.5-11.0) 04/08/21 22:55 RBC 5.14 M/mm3 (3.65-5.03) H 04/08/21 22:55 Hgb 17.0 gm/dl (11.8-15.2) H 04/08/21 22:55 Hct 49.3 % (35.5-45.6) H D 04/08/21 22:55 MCV 96 fl (84-94) H 04/08/21 22:55 MCH 33 pg (28-32) H 04/08/21 22:55 MCHC 35 % (32-34) H 04/08/21 22:55 RDW 13.1 % (13.2-15.2) L 04/08/21 22:55 Plt Count 249 K/mm3 (140-440) 04/08/21 22:55 Lymph % (Auto) 13.1 % (13.4-35.0) L 04/08/21 22:55 [place] % (Auto) 14.8 % (0.0-7.3) H 04/08/21 22:55 Eos % (Auto) 2.7 % (0.0-4.3) 04/08/21 22:55 Baso % (Auto) 0.5 % (0.0-1.8) 04/08/21 22:55 Lymph # (Auto) 1.3 K/mm3 (1.2-5.4) 04/08/21 22:55 [place] # (Auto) 1.4 K/mm3 (0.0-0.8) H 04/08/21 22:55 Eos # (Auto) 0.3 K/mm3 (0.0-0.4) 04/08/21 22:55 Baso # (Auto) 0.0 K/mm3 (0.0-0.1) 04/08/21 22:55 Seg Neutrophils % 68.9 % (40.0-70.0) 04/08/21 22:55 Seg Neutrophils # 6.7 K/mm3 (1.8-7.7) 04/08/21 22:55 Sodium 139 mmol/L (137-145) 04/08/21 22:55 Potassium 4.1 mmol/L (3.6-5.0) 04/08/21 22:55 Chloride 100.2 mmol/L (98-107) 04/08/21 22:55 Carbon Dioxide 21 mmol/L (22-30) L D 04/08/21 22:55 Anion Gap 22 mmol/L 04/08/21 22:55 BUN 18 mg/dL (9-20) 04/08/21 22:55 Creatinine 0.9 mg/dL (0.8-1.3) 04/08/21 22:55 Estimated GFR > 60 ml/min 04/08/21 22:55 BUN/Creatinine Ratio 20 % 04/08/21 22:55 Glucose 130 mg/dL (75-100) H 04/08/21 22:55 POC Glucose 113 mg/dL (70-105) H 04/07/21 22:48 Hemoglobin A1c 6.6 % (4-6) H 04/08/21 22:55 Calcium 8.9 mg/dL (8.4-10.2) 04/08/21 22:55 Magnesium 2.10 mg/dL (1.7-2.3) 04/08/21 22:55 Total Bilirubin 0.60 mg/dL (0.1-1.2) 04/08/21 22:55 AST 30 units/L (5-40) 04/08/21 22:55 ALT 17 units/L (7-56) 04/08/21 22:55 Alkaline Phosphatase 102 units/L (35-129) 04/08/21 22:55 Total Protein 6.7 g/dL (6.3-8.2) 04/08/21 22:55 Albumin 4.0 g/dL (3.9-5) 04/08/21 22:55 Albumin/Globulin Ratio 1.5 % 04/08/21 22:55 Triglycerides 100 mg/dL (2-149) 04/08/21 22:55 Cholesterol 130 mg/dL (50-199) 04/08/21 22:55 LDL Cholesterol Direct 62 mg/dL (50-130) 04/08/21 22:55 HDL Cholesterol 53 mg/dL (40-59) 04/08/21 22:55 Cholesterol/HDL Ratio 2.45 % 04/08/21 22:55 TSH 3.120 mlU/mL (0.270-4.200) 04/08/21 22:55 Last Vital Signs Temp 98.2 F 04/17/21 19:47 Pulse 88 04/17/21 19:47 Resp 20 04/17/21 19:47 BP 92/56 04/17/21 19:47 Pulse Ox 90 04/17/21 19:47
[2021-04-18] MEDS: GABAPENTIN 300 MG CAP PO SCH ×2 (15:56→21:18)
[2021-04-18] MEDS: DONEPEZIL 5 MG TAB PO SCH (15:56)
[2021-04-18] MEDS: MEMANTINE 10 MG TAB PO SCH ×2 (15:57→21:18)
[2021-04-18] MEDS: CLOPIDOGREL 75 MG TAB PO SCH (15:57)
[2021-04-18] MEDS: VALPROIC ACID 250 MG/5 ML ORAL LIQD PO SCH ×3 (15:58→20:23)
[2021-04-18] MEDS: PANTOPRAZOLE 40 MG TAB PO SCH (16:00)
[2021-04-18] MEDS: risperiDONE 1 MG TAB PO SCH ×2 (16:01→21:18)
[2021-04-18] MEDS: SERTRALINE 100 MG TAB PO SCH (16:02)
[2021-04-18] MEDS: MIRTAZAPINE 15 MG TAB PO SCH (21:17)
[2021-04-18] MEDS: traZODone 50 MG TAB PO SCH (21:18)
[2021-04-19] MEDS: VALPROIC ACID 250 MG/5 ML ORAL LIQD PO SCH ×3 (08:00→21:26)
--- NOTE | 2021-04-19 08:51 | Progress Note ---
Subjective Date of service: 04/19/21 Principal diagnosis: Dementia with Behavioral Disturbance Subjective Comment: Per Psych Nurse pt spent the evening in activity room sitting in recliner, alert and oriented to person, confused, resistive with care, combative, gait is unsteady, safety maintained, medication given crushed in juice, ate 50% of bedtime snack, no distress noted, will continue to monitor for safety. Psych Progress Patient appears to be very sleeepy early AM and more awake and alert in afternoons. No event reported from yesterday per nurse documentations. REVIEW OF SYSTEMS ROS cannot be reliably obtained from the patient due to his confusion MENTAL STATUS EXAMINATION General Appearance and Behavior: Age appropriate, good hygiene, wearing appropriate clothes, uncooperative polite with questioning. Cooperation: Withdrawn Psychomotor Behavior: Psychomotor agitation Mood: Affect and affective range: Flat Thought Process: Tangential, loose associattion Thought Content: Paranoid and confused Speech: Normal volume, Regular rate and rhythm, Intellectual Functioning: Poor Suicidal Ideation: N/A Homicidal Ideation: N/A Impulse Control: Unimpaired Insight and Judgment: Impaired Memory: memory impaired Attention:Distractible, Orientation: Alert, but disoriented and confused Assessment and Plan - Psychiatric problem (1) Dementia with behavioral disturbance Current Visit: Yes Status: Acute F03.91 Treatment Plan Continue current medications, will increase risperidone Patient admitted for inpatient psychiatric evaluation, medication adjustment and close monitoring The patient's behavior, mood, sleep and appetite will be closely monitored. Patient enrolled in individual and group therapeutic sessions and encouraged to attend. Patient provided with a safe and structured environment. Patient's physical health needs will be addressed by the Hospitalist. Hospitalist Consulted Labs including CBC, CMP, Lipid profile and Hemoglobin A1C levels ordered for baseline reference Social Assessment will be completed and the Claims Associate will work with patient and family to ensure a suitable and safe disposition Medication adjustment will be made as clinically indicated Usual Wellness Mandaen/Preservation: - Start Trazodone 50 mg po QHS & 50 mg po QHS PRN between 10 PM & 2 AM for insomnia - Start Melatonin 5 mg po QHS to promote circadian rhythm - Start [place]-3 for brain health, reduce impulsivity, and as adjunctive treatment for mood disorder, continue upon discharge given overall benefits. - Start B1 prophylaxis with 200 mg po for 5 days The patient agreed on the treatment plan, understood the risk, benefit, alternative treatment, potential consequence of no treatment, and gave informed consent. Initial Certification Inpatient psych services: I certify that the inpatient psychiatric services are required for treatment that could reasonably be expected to improve the patient's condition. Estimated days: 3 Post hospital care: primary care provider, psychiatric provider Medications and Allergies Allergies Allergy/AdvReac Type Severity Reaction Status Date / Time No Known Allergies Allergy Unverified 04/06/21 10:45 Home Medications Medication Instructions Recorded Confirmed Last Taken Type AtorvaSTATin [Lipitor] 40 mg PO QHS 04/07/21 04/07/21 Unknown History Clopidogrel [Plavix] 75 mg PO QDAY 04/07/21 04/07/[address] [DepaKOTE DR] 250 mg PO BID 04/07/21 04/07/21 Unknown History Gabapentin [Neurontin] 300 mg PO BID 04/07/21 04/07/21 Unknown History Memantine [Namenda] 10 mg PO BID 04/07/21 04/07/21 Unknown History Pantoprazole [Protonix] 40 mg PO QDAY 04/07/21 04/07/21 Unknown History QUEtiapine [SEROquel] 25 mg PO TID 04/07/21 04/07/21 Unknown History Sertraline [Zoloft] 100 mg PO QDAY 04/07/21 04/07/21 Unknown History donepeziL [Aricept] 5 mg PO QDAY 04/07/21 04/07/21 Unknown History traZODone [Desyrel] 50 mg PO QHS 04/07/21 04/07/21 Unknown History Active Meds: Active Medications Atorvastatin Calcium (Atorvastatin 40 Mg Tab) 40 mg PO QHS [facility] Last Admin: 04/18/21 21:18 Dose: 40 mg Documented by: Clopidogrel Bisulfate (Clopidogrel 75 Mg Tab) 75 mg PO QDAY [facility] Last Admin: 04/18/21 15:57 Dose: 75 mg Documented by: Donepezil HCl (Donepezil 5 Mg Tab) 5 mg PO QDAY [facility] Last Admin: 04/18/21 15:56 Dose: 5 mg Documented by: Gabapentin (Gabapentin 300 Mg Cap) 300 mg PO BID [facility] Last Admin: 04/18/21 21:18 Dose: 300 mg Documented by: Haloperidol Lactate (Haloperidol Lactate 5 Mg/1 Ml Inj) 5 mg IM Q6H PRN PRN Reason: Agitation Lorazepam (Lorazepam 2 Mg/Ml Vial) 2 mg IM Q6H PRN PRN Reason: Agitation Last Admin: 04/18/21 00:30 Dose: 2 mg Documented by: Melatonin (Melatonin 5 Mg Tab) 5 mg PO QHS PRN PRN Reason: Sleep Last Admin: 04/11/21 21:48 Dose: 5 mg Documented by: Memantine (Memantine 10 Mg Tab) 10 mg PO BID [facility] Last Admin: 04/18/21 21:18 Dose: 10 mg Documented by: Mirtazapine (Mirtazapine 15 Mg Tab) 15 mg PO QHS [facility] Last Admin: 04/18/21 21:17 Dose: 15 mg Documented by: Pantoprazole Sodium (Pantoprazole 40 Mg Tab) 40 mg PO QDAY [facility] Last Admin: 04/18/21 16:00 Dose: 40 mg Documented by: Risperidone (Risperidone 1 Mg Tab) 2 mg PO BID [facility] Last Admin: 04/18/21 21:18 Dose: 2 mg Documented by: Sertraline HCl (Sertraline 100 Mg Tab) 100 mg PO QDAY [facility] Last Admin: 04/18/21 16:02 Dose: 100 mg Documented by: Trazodone HCl (Trazodone 50 Mg Tab) 50 mg PO QHS [facility] Last Admin: 04/18/21 21:18 Dose: 50 mg Documented by: Valproic Acid (Valproic Acid 250 Mg/5 Ml Oral Liqd) 125 mg PO TID [facility] Last Admin: 04/18/21 20:23 Dose: 125 mg Documented by: Results - Results Labs/Vitals: Laboratory Last Values WBC 9.8 K/mm3 (4.5-11.0) 04/08/21 22:55 RBC 5.14 M/mm3 (3.65-5.03) H 04/08/21 22:55 Hgb 17.0 gm/dl (11.8-15.2) H 04/08/21 22:55 Hct 49.3 % (35.5-45.6) H D 04/08/21 22:55 MCV 96 fl (84-94) H 04/08/21 22:55 MCH 33 pg (28-32) H 04/08/21 22:55 MCHC 35 % (32-34) H 04/08/21 22:55 RDW 13.1 % (13.2-15.2) L 04/08/21 22:55 Plt Count 249 K/mm3 (140-440) 04/08/21 22:55 Lymph % (Auto) 13.1 % (13.4-35.0) L 04/08/21 22:55 [place] % (Auto) 14.8 % (0.0-7.3) H 04/08/21 22:55 Eos % (Auto) 2.7 % (0.0-4.3) 04/08/21 22:55 Baso % (Auto) 0.5 % (0.0-1.8) 04/08/21 22:55 Lymph # (Auto) 1.3 K/mm3 (1.2-5.4) 04/08/21 22:55 [place] # (Auto) 1.4 K/mm3 (0.0-0.8) H 04/08/21 22:55 Eos # (Auto) 0.3 K/mm3 (0.0-0.4) 04/08/21 22:55 Baso # (Auto) 0.0 K/mm3 (0.0-0.1) 04/08/21 22:55 Seg Neutrophils % 68.9 % (40.0-70.0) 04/08/21 22:55 Seg Neutrophils # 6.7 K/mm3 (1.8-7.7) 04/08/21 22:55 Sodium 139 mmol/L (137-145) 04/08/21 22:55 Potassium 4.1 mmol/L (3.6-5.0) 04/08/21 22:55 Chloride 100.2 mmol/L (98-107) 04/08/21 22:55 Carbon Dioxide 21 mmol/L (22-30) L D 04/08/21 22:55 Anion Gap 22 mmol/L 04/08/21 22:55 BUN 18 mg/dL (9-20) 04/08/21 22:55 Creatinine 0.9 mg/dL (0.8-1.3) 04/08/21 22:55 Estimated GFR > 60 ml/min 04/08/21 22:55 BUN/Creatinine Ratio 20 % 04/08/21 22:55 Glucose 130 mg/dL (75-100) H 04/08/21 22:55 POC Glucose 113 mg/dL (70-105) H 04/07/21 22:48 Hemoglobin A1c 6.6 % (4-6) H 04/08/21 22:55 Calcium 8.9 mg/dL (8.4-10.2) 04/08/21 22:55 Magnesium 2.10 mg/dL (1.7-2.3) 04/08/21 22:55 Total Bilirubin 0.60 mg/dL (0.1-1.2) 04/08/21 22:55 AST 30 units/L (5-40) 04/08/21 22:55 ALT 17 units/L (7-56) 04/08/21 22:55 Alkaline Phosphatase 102 units/L (35-129) 04/08/21 22:55 Total Protein 6.7 g/dL (6.3-8.2) 04/08/21 22:55 Albumin 4.0 g/dL (3.9-5) 04/08/21 22:55 Albumin/Globulin Ratio 1.5 % 04/08/21 22:55 Triglycerides 100 mg/dL (2-149) 04/08/21 22:55 Cholesterol 130 mg/dL (50-199) 04/08/21 22:55 LDL Cholesterol Direct 62 mg/dL (50-130) 04/08/21 22:55 HDL Cholesterol 53 mg/dL (40-59) 04/08/21 22:55 Cholesterol/HDL Ratio 2.45 % 04/08/21 22:55 TSH 3.120 mlU/mL (0.270-4.200) 04/08/21 22:55 Last Vital Signs Temp 97.7 F 04/18/21 22:00 Pulse 78 04/18/21 22:00 Resp 18 04/18/21 22:00 BP 99/62 04/18/21 22:00 Pulse Ox 95 04/18/21 22:00
[2021-04-19] MEDS: risperiDONE 1 MG TAB PO SCH ×2 (16:16→21:27)
[2021-04-19] MEDS: MEMANTINE 10 MG TAB PO SCH ×2 (16:16→21:27)
[2021-04-19] MEDS: PANTOPRAZOLE 40 MG TAB PO SCH (16:16)
[2021-04-19] MEDS: GABAPENTIN 300 MG CAP PO SCH ×2 (16:16→21:27)
[2021-04-19] MEDS: CLOPIDOGREL 75 MG TAB PO SCH (16:16)
[2021-04-19] MEDS: DONEPEZIL 5 MG TAB PO SCH (16:17)
[2021-04-19] MEDS: SERTRALINE 100 MG TAB PO SCH (16:17)
[2021-04-19] MEDS: traZODone 50 MG TAB PO SCH (21:27)
[2021-04-19] MEDS: MIRTAZAPINE 15 MG TAB PO SCH (21:27)
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
[2021-04-20] MEDS: SERTRALINE 100 MG TAB PO SCH (10:34)
[2021-04-20] MEDS: risperiDONE 1 MG TAB PO SCH ×2 (10:34→21:12)
[2021-04-20] MEDS: DONEPEZIL 5 MG TAB PO SCH (10:35)
[2021-04-20] MEDS: GABAPENTIN 300 MG CAP PO SCH ×2 (10:35→21:12)
[2021-04-20] MEDS: CLOPIDOGREL 75 MG TAB PO SCH (10:35)
[2021-04-20] MEDS: MEMANTINE 10 MG TAB PO SCH ×2 (10:35→21:11)
[2021-04-20] MEDS: VALPROIC ACID 250 MG/5 ML ORAL LIQD PO SCH ×4 (10:35→20:15)
[2021-04-20] MEDS: PANTOPRAZOLE 40 MG TAB PO SCH (10:37)
[2021-04-20] MEDS: MIRTAZAPINE 15 MG TAB PO SCH (21:11)
[2021-04-20] MEDS: traZODone 50 MG TAB PO SCH (21:12)
--- NOTE | 2021-04-21 08:10 | Progress Note ---
Subjective Date of service: 04/21/21 Principal diagnosis: Dementia with Behavioral Disturbance Subjective Comment: Per Psych Nursept spent last evening in bed, pt is alert and oriented to person, calm and cooperative, no agitation or aggressive behavio, compliant with medication, medication given in juice, ate bedtime snack, no distress noted, will continue to monitor for safety. Psych Progress Patient in room, awake today and alert to verbal stimuli, states he is doing well and slept pretty good. Patient with history of severre dementia, observed for behavior issues and agitation. REVIEW OF SYSTEMS ROS cannot be reliably obtained from the patient due to his confusion MENTAL STATUS EXAMINATION General Appearance and Behavior: Age appropriate, good hygiene, wearing appropriate clothes, uncooperative polite with questioning. Cooperation: Withdrawn Psychomotor Behavior: Psychomotor agitation Mood: Affect and affective range: Flat Thought Process: Tangential, loose associattion Thought Content: Paranoid and confused Speech: Normal volume, Regular rate and rhythm, Intellectual Functioning: Poor Suicidal Ideation: N/A Homicidal Ideation: N/A Impulse Control: Unimpaired Insight and Judgment: Impaired Memory: memory impaired Attention:Distractible, Orientation: Alert, but disoriented and confused Assessment and Plan - Psychiatric problem (1) Dementia with behavioral disturbance Current Visit: Yes Status: Acute F03.91 Treatment Plan Continue current medications, will increase risperidone Patient admitted for inpatient psychiatric evaluation, medication adjustment and close monitoring The patient's behavior, mood, sleep and appetite will be closely monitored. Patient enrolled in individual and group therapeutic sessions and encouraged to attend. Patient provided with a safe and structured environment. Patient's physical health needs will be addressed by the Hospitalist. Hospitalist Consulted Labs including CBC, CMP, Lipid profile and Hemoglobin A1C levels ordered for baseline reference Social Assessment will be completed and the County Coroner will work with patient and family to ensure a suitable and safe disposition Medication adjustment will be made as clinically indicated Usual Wellness Pentecostal/Preservation: - Start Trazodone 50 mg po QHS & 50 mg po QHS PRN between 10 PM & 2 AM for insomnia - Start Melatonin 5 mg po QHS to promote circadian rhythm - Start [place]-3 for brain health, reduce impulsivity, and as adjunctive treatment for mood disorder, continue upon discharge given overall benefits. - Start B1 prophylaxis with 200 mg po for 5 days The patient agreed on the treatment plan, understood the risk, benefit, alternative treatment, potential consequence of no treatment, and gave informed consent. Initial Certification Inpatient psych services: I certify that the inpatient psychiatric services are required for treatment that could reasonably be expected to improve the patient's condition. Estimated days: 3 Post hospital care: primary care provider, psychiatric provider Medications and Allergies Allergies Allergy/AdvReac Type Severity Reaction Status Date / Time No Known Allergies Allergy Unverified 04/06/21 10:45 Home Medications Medication Instructions Recorded Confirmed Last Taken Type AtorvaSTATin [Lipitor] 40 mg PO QHS 04/07/21 04/07/21 Unknown History Clopidogrel [Plavix] 75 mg PO QDAY 04/07/21 04/07/[address] [DepaKOTE DR] 250 mg PO BID 04/07/21 04/07/21 Unknown History Gabapentin [Neurontin] 300 mg PO BID 04/07/21 04/07/21 Unknown History Memantine [Namenda] 10 mg PO BID 04/07/21 04/07/21 Unknown History Pantoprazole [Protonix] 40 mg PO QDAY 04/07/21 04/07/21 Unknown History QUEtiapine [SEROquel] 25 mg PO TID 04/07/21 04/07/21 Unknown History Sertraline [Zoloft] 100 mg PO QDAY 04/07/21 04/07/21 Unknown History donepeziL [Aricept] 5 mg PO QDAY 04/07/21 04/07/21 Unknown History traZODone [Desyrel] 50 mg PO QHS 04/07/21 04/07/21 Unknown History Active Meds: Active Medications Atorvastatin Calcium (Atorvastatin 40 Mg Tab) 40 mg PO QHS [facility] Last Admin: 04/20/21 21:11 Dose: 40 mg Documented by: Clopidogrel Bisulfate (Clopidogrel 75 Mg Tab) 75 mg PO QDAY [facility] Last Admin: 04/20/21 10:35 Dose: 75 mg Documented by: Donepezil HCl (Donepezil 5 Mg Tab) 5 mg PO QDAY [facility] Last Admin: 04/20/21 10:35 Dose: 5 mg Documented by: Gabapentin (Gabapentin 300 Mg Cap) 300 mg PO BID [facility] Last Admin: 04/20/21 21:12 Dose: 300 mg Documented by: Haloperidol Lactate (Haloperidol Lactate 5 Mg/1 Ml Inj) 5 mg IM Q6H PRN PRN Reason: Agitation Lorazepam (Lorazepam 2 Mg/Ml Vial) 2 mg IM Q6H PRN PRN Reason: Agitation Last Admin: 04/18/21 00:30 Dose: 2 mg Documented by: Melatonin (Melatonin 5 Mg Tab) 5 mg PO QHS PRN PRN Reason: Sleep Last Admin: 04/11/21 21:48 Dose: 5 mg Documented by: Memantine (Memantine 10 Mg Tab) 10 mg PO BID [facility] Last Admin: 04/20/21 21:11 Dose: 10 mg Documented by: Mirtazapine (Mirtazapine 15 Mg Tab) 15 mg PO QHS [facility] Last Admin: 04/20/21 21:11 Dose: 15 mg Documented by: Pantoprazole Sodium (Pantoprazole 40 Mg Tab) 40 mg PO QDAY [facility] Last Admin: 04/20/21 10:37 Dose: 40 mg Documented by: Risperidone (Risperidone 1 Mg Tab) 2 mg PO BID [facility] Last Admin: 04/20/21 21:12 Dose: 2 mg Documented by: Sertraline HCl (Sertraline 100 Mg Tab) 100 mg PO QDAY [facility] Last Admin: 04/20/21 10:34 Dose: 100 mg Documented by: Trazodone HCl (Trazodone 50 Mg Tab) 50 mg PO QHS [facility] Last Admin: 04/20/21 21:12 Dose: 50 mg Documented by: Valproic Acid (Valproic Acid 250 Mg/5 Ml Oral Liqd) 250 mg PO TID [facility] Last Admin: 04/20/21 20:15 Dose: 250 mg Documented by: Results - Results Labs/Vitals: Laboratory Last Values WBC 9.8 K/mm3 (4.5-11.0) 04/08/21 22:55 RBC 5.14 M/mm3 (3.65-5.03) H 04/08/21 22:55 Hgb 17.0 gm/dl (11.8-15.2) H 04/08/21 22:55 Hct 49.3 % (35.5-45.6) H D 04/08/21 22:55 MCV 96 fl (84-94) H 04/08/21 22:55 MCH 33 pg (28-32) H 04/08/21 22:55 MCHC 35 % (32-34) H 04/08/21 22:55 RDW 13.1 % (13.2-15.2) L 04/08/21 22:55 Plt Count 249 K/mm3 (140-440) 04/08/21 22:55 Lymph % (Auto) 13.1 % (13.4-35.0) L 04/08/21 22:55 [place] % (Auto) 14.8 % (0.0-7.3) H 04/08/21 22:55 Eos % (Auto) 2.7 % (0.0-4.3) 04/08/21 22:55 Baso % (Auto) 0.5 % (0.0-1.8) 04/08/21 22:55 Lymph # (Auto) 1.3 K/mm3 (1.2-5.4) 04/08/21 22:55 [place] # (Auto) 1.4 K/mm3 (0.0-0.8) H 04/08/21 22:55 Eos # (Auto) 0.3 K/mm3 (0.0-0.4) 04/08/21 22:55 Baso # (Auto) 0.0 K/mm3 (0.0-0.1) 04/08/21 22:55 Seg Neutrophils % 68.9 % (40.0-70.0) 04/08/21 22:55 Seg Neutrophils # 6.7 K/mm3 (1.8-7.7) 04/08/21 22:55 Sodium 139 mmol/L (137-145) 04/08/21 22:55 Potassium 4.1 mmol/L (3.6-5.0) 04/08/21 22:55 Chloride 100.2 mmol/L (98-107) 04/08/21 22:55 Carbon Dioxide 21 mmol/L (22-30) L D 04/08/21 22:55 Anion Gap 22 mmol/L 04/08/21 22:55 BUN 18 mg/dL (9-20) 04/08/21 22:55 Creatinine 0.9 mg/dL (0.8-1.3) 04/08/21 22:55 Estimated GFR > 60 ml/min 04/08/21 22:55 BUN/Creatinine Ratio 20 % 04/08/21 22:55 Glucose 130 mg/dL (75-100) H 04/08/21 22:55 POC Glucose 113 mg/dL (70-105) H 04/07/21 22:48 Hemoglobin A1c 6.6 % (4-6) H 04/08/21 22:55 Calcium 8.9 mg/dL (8.4-10.2) 04/08/21 22:55 Magnesium 2.10 mg/dL (1.7-2.3) 04/08/21 22:55 Total Bilirubin 0.60 mg/dL (0.1-1.2) 04/08/21 22:55 AST 30 units/L (5-40) 04/08/21 22:55 ALT 17 units/L (7-56) 04/08/21 22:55 Alkaline Phosphatase 102 units/L (35-129) 04/08/21 22:55 Total Protein 6.7 g/dL (6.3-8.2) 04/08/21 22:55 Albumin 4.0 g/dL (3.9-5) 04/08/21 22:55 Albumin/Globulin Ratio 1.5 % 04/08/21 22:55 Triglycerides 100 mg/dL (2-149) 04/08/21 22:55 Cholesterol 130 mg/dL (50-199) 04/08/21 22:55 LDL Cholesterol Direct 62 mg/dL (50-130) 04/08/21 22:55 HDL Cholesterol 53 mg/dL (40-59) 04/08/21 22:55 Cholesterol/HDL Ratio 2.45 % 04/08/21 22:55 TSH 3.120 mlU/mL (0.270-4.200) 04/08/21 22:55 Last Vital Signs Temp 97.3 F L 04/20/21 19:30 Pulse 64 04/20/21 19:30 Resp 20 04/20/21 19:30 BP 100/50 04/20/21 19:30 Pulse Ox 92 04/20/21 19:30
[2021-04-21] MEDS: VALPROIC ACID 250 MG/5 ML ORAL LIQD PO SCH ×3 (12:12→20:26)
[2021-04-21] MEDS: GABAPENTIN 300 MG CAP PO SCH ×2 (14:47→21:17)
[2021-04-21] MEDS: PANTOPRAZOLE 40 MG TAB PO SCH (14:48)
[2021-04-21] MEDS: MEMANTINE 10 MG TAB PO SCH ×2 (14:48→21:17)
[2021-04-21] MEDS: risperiDONE 1 MG TAB PO SCH ×2 (14:48→21:17)
[2021-04-21] MEDS: SERTRALINE 100 MG TAB PO SCH (14:48)
[2021-04-21] MEDS: DONEPEZIL 5 MG TAB PO SCH (14:48)
[2021-04-21] MEDS: CLOPIDOGREL 75 MG TAB PO SCH (14:48)
[2021-04-21] MEDS: MIRTAZAPINE 15 MG TAB PO SCH (21:17)
[2021-04-21] MEDS: traZODone 50 MG TAB PO SCH (21:17)
--- NOTE | 2021-04-22 09:15 | Discharge Summary ---
Providers - Providers Date of Admission: 04/07/21 22:03 Date of discharge: 04/22/21 Attending physician: RUBY LEE MD 04/07/21 17:48 Consult to Physician [CONS] Routine Comment: Consulting Provider: DIANA SPRINGER Physician Instructions: Reason For Exam: med mgt Primary care physician: [facility] SOCIOLOGIST Hospitalization Reason for admission: agitation Admitting Diagnosis: F02.81 - DEMENTIA IN OTH DISEASES CLASSD ELSWHR W BEHAVIORAL DISTURB Disposition: DC-01 TO HOME OR SELFCARE Time spent for discharge: 38 Allergies/Adverse Reactions: Allergies No Known Allergies Allergy (Unverified 04/06/21 10:45) Vital Signs: Last Vital Signs Temp 97.4 F L 04/21/21 19:41 Pulse 87 04/21/21 19:41 Resp 17 04/21/21 19:41 BP 96/48 04/21/21 19:41 Pulse Ox 86 04/21/21 19:41 Last Lab: Laboratory Last Values WBC 9.8 K/mm3 (4.5-11.0) 04/08/21 22:55 RBC 5.14 M/mm3 (3.65-5.03) H 04/08/21 22:55 Hgb 17.0 gm/dl (11.8-15.2) H 04/08/21 22:55 Hct 49.3 % (35.5-45.6) H D 04/08/21 22:55 MCV 96 fl (84-94) H 04/08/21 22:55 MCH 33 pg (28-32) H 04/08/21 22:55 MCHC 35 % (32-34) H 04/08/21 22:55 RDW 13.1 % (13.2-15.2) L 04/08/21 22:55 Plt Count 249 K/mm3 (140-440) 04/08/21 22:55 Lymph % (Auto) 13.1 % (13.4-35.0) L 04/08/21 22:55 [place] % (Auto) 14.8 % (0.0-7.3) H 04/08/21 22:55 Eos % (Auto) 2.7 % (0.0-4.3) 04/08/21 22:55 Baso % (Auto) 0.5 % (0.0-1.8) 04/08/21 22:55 Lymph # (Auto) 1.3 K/mm3 (1.2-5.4) 04/08/21 22:55 [place] # (Auto) 1.4 K/mm3 (0.0-0.8) H 04/08/21 22:55 Eos # (Auto) 0.3 K/mm3 (0.0-0.4) 04/08/21 22:55 Baso # (Auto) 0.0 K/mm3 (0.0-0.1) 04/08/21 22:55 Seg Neutrophils % 68.9 % (40.0-70.0) 04/08/21 22:55 Seg Neutrophils # 6.7 K/mm3 (1.8-7.7) 04/08/21 22:55 Sodium 139 mmol/L (137-145) 04/08/21 22:55 Potassium 4.1 mmol/L (3.6-5.0) 04/08/21 22:55 Chloride 100.2 mmol/L (98-107) 04/08/21 22:55 Carbon Dioxide 21 mmol/L (22-30) L D 04/08/21 22:55 Anion Gap 22 mmol/L 04/08/21 22:55 BUN 18 mg/dL (9-20) 04/08/21 22:55 Creatinine 0.9 mg/dL (0.8-1.3) 04/08/21 22:55 Estimated GFR > 60 ml/min 04/08/21 22:55 BUN/Creatinine Ratio 20 % 04/08/21 22:55 Glucose 130 mg/dL (75-100) H 04/08/21 22:55 POC Glucose 113 mg/dL (70-105) H 04/07/21 22:48 Hemoglobin A1c 6.6 % (4-6) H 04/08/21 22:55 Calcium 8.9 mg/dL (8.4-10.2) 04/08/21 22:55 Magnesium 2.10 mg/dL (1.7-2.3) 04/08/21 22:55 Total Bilirubin 0.60 mg/dL (0.1-1.2) 04/08/21 22:55 AST 30 units/L (5-40) 04/08/21 22:55 ALT 17 units/L (7-56) 04/08/21 22:55 Alkaline Phosphatase 102 units/L (35-129) 04/08/21 22:55 Total Protein 6.7 g/dL (6.3-8.2) 04/08/21 22:55 Albumin 4.0 g/dL (3.9-5) 04/08/21 22:55 Albumin/Globulin Ratio 1.5 % 04/08/21 22:55 Triglycerides 100 mg/dL (2-149) 04/08/21 22:55 Cholesterol 130 mg/dL (50-199) 04/08/21 22:55 LDL Cholesterol Direct 62 mg/dL (50-130) 04/08/21 22:55 HDL Cholesterol 53 mg/dL (40-59) 04/08/21 22:55 Cholesterol/HDL Ratio 2.45 % 04/08/21 22:55 TSH 3.120 mlU/mL (0.270-4.200) 04/08/21 22:55 Core Measure Documentation - Palliative Care Palliative Care/ Comfort Measures: Not Applicable - Core Measures Any of the following diagnoses?: none Exam - Constitutional Vitals: Temp Pulse Resp BP Pulse Ox 97.4 F L 87 17 96/48 86 04/21/21 19:41 04/21/21 19:41 04/21/21 19:41 04/21/21 19:41 04/21/21 19:41 General appearance: Present: no acute distress - EENT Eyes: Present: PERRL, EOM intact ENT: hearing intact, clear oral mucosa - Neck Neck: Present: supple, normal ROM - Respiratory Respiratory effort: normal Plan Activity: advance as tolerated Weight Bearing Status: Weight Bear as Tolerated Care Plan Goals: maintain stable mental health Follow up with: PRIMARY CARE, [Primary Care Provider] - 7 Days Prescriptions: Melatonin [Melatonin 5MG TAB] 5 mg PO QHS PRN #30 tablet PRN Reason: Sleep Mirtazapine [Remeron 15mg TAB] 15 mg PO QHS #30 tablet VALPROIC ACID Liq [DepaKENE Liq] 250 mg PO TID #90 oral.liqd risperiDONE [RisperDAL] 2 mg PO BID #60 tablet
[2021-04-22] MEDS: VALPROIC ACID 250 MG/5 ML ORAL LIQD PO SCH ×3 (10:24→20:45)
--- NOTE | 2021-04-22 10:55 | XRay Report ---
CHEST 1 VIEW INDICATION: r/o TB. COMPARISON: None FINDINGS: Support devices: None. Heart: Within normal limits. Lungs/Pleura: No acute air space or interstitial disease. Additional findings: None. IMPRESSION: Unremarkable AP chest. Signer Name: Marco Antonio Ford Jr, MD Signed: 04/22/2021 10:50 AM Workstation Name: [id number]
[2021-04-22] MEDS: DONEPEZIL 5 MG TAB PO SCH (13:22)
[2021-04-22] MEDS: GABAPENTIN 300 MG CAP PO SCH ×2 (13:23→21:11)
[2021-04-22] MEDS: CLOPIDOGREL 75 MG TAB PO SCH (13:23)
[2021-04-22] MEDS: MEMANTINE 10 MG TAB PO SCH ×2 (13:23→21:11)
[2021-04-22] MEDS: SERTRALINE 100 MG TAB PO SCH (13:23)
[2021-04-22] MEDS: risperiDONE 1 MG TAB PO SCH ×2 (13:23→21:10)
[2021-04-22] MEDS: PANTOPRAZOLE 40 MG TAB PO SCH (13:23)
[2021-04-22] MEDS: MIRTAZAPINE 15 MG TAB PO SCH (21:10)
[2021-04-22] MEDS: traZODone 50 MG TAB PO SCH (21:11)
--- NOTE | 2021-04-23 09:17 | Progress Note ---
Subjective Date of service: 04/23/21 Principal diagnosis: Dementia with Behavioral Disturbance Subjective Comment: The patient was seen today. He is lying in bed awake. He is calm. He is confused but pleasant. He greets me with "good morning." He says he slept well. Reason for continued inpatient treatment: The is at his baseline. He will likely not have any further improvement as far as his mental health is concerned. The patient will discharge once the social work assistant sets up outpatient resources and plan with family. The patient is now awaiting placement. REVIEW OF SYSTEMS ROS cannot be reliably obtained from the patient due to his mental state MENTAL STATUS EXAMINATION Unable to assess Diagnoses Dementia with Behavioral Disturbance Treatment Plan Patient admitted for inpatient psychiatric evaluation, medication adjustment and close monitoring The patient's behavior, mood, sleep and appetite will be closely monitored. Patient enrolled in individual and group therapeutic sessions and encouraged to attend. Patient provided with a safe and structured environment. Patient's physical health needs will be addressed by the Hospitalist. Hospitalist Consulted Labs including CBC, CMP, Lipid profile and Hemoglobin A1C levels ordered for baseline reference Social Assessment will be completed and the [employer] will work with patient and family to ensure a suitable and safe disposition Medication adjustment will be made as clinically indicated No changes made today Usual Wellness [facility]: - Start Trazodone 50 mg po QHS & 50 mg po QHS PRN between 10 PM & 2 AM for insomnia - Start Melatonin 5 mg po QHS to promote circadian rhythm - Start [place]-3 for brain health, reduce impulsivity, and as adjunctive treatment for mood disorder, continue upon discharge given overall benefits. - Start B1 prophylaxis with 200 mg po for 5 days The patient agreed on the treatment plan, understood the risk, benefit, alternative treatment, potential consequence of no treatment, and gave informed consent. Estimated days: 1 Post hospital care: primary care provider, psychiatric provider Medications and Allergies Allergies Allergy/AdvReac Type Severity Reaction Status Date / Time No Known Allergies Allergy Unverified 04/06/21 10:45 Home Medications Medication Instructions Recorded Confirmed Last Taken Type AtorvaSTATin [Lipitor] 40 mg PO QHS 04/07/21 04/07/21 Unknown History Clopidogrel [Plavix] 75 mg PO QDAY 04/07/21 04/07/21 Unknown History Gabapentin 300 mg PO BID 04/07/21 04/07/21 Unknown History Memantine 10 mg PO BID 04/07/21 04/07/21 Unknown History Sertraline [Zoloft] 100 mg PO QDAY 04/07/21 04/07/21 Unknown History donepeziL [Aricept] 5 mg PO QDAY 04/07/21 04/07/21 Unknown History traZODone [Desyrel] 50 mg PO QHS 04/07/21 04/07/21 Unknown History Melatonin [Melatonin 5MG TAB] 5 mg PO QHS PRN #30 tablet 04/22/21 Unknown Rx Mirtazapine [Remeron 15mg TAB] 15 mg PO QHS #30 tablet 04/22/21 Unknown Rx VALPROIC ACID Liq [DepaKENE Liq] 250 mg PO TID #90 oral.liqd 04/22/21 Unknown Rx risperiDONE [RisperDAL] 2 mg PO BID #60 tablet 04/22/21 Unknown Rx Active Meds: Active Medications Atorvastatin Calcium (Atorvastatin 40 Mg Tab) 40 mg PO QHS [facility] Last Admin: 04/22/21 21:11 Dose: 40 mg Documented by: Clopidogrel Bisulfate (Clopidogrel 75 Mg Tab) 75 mg PO QDAY [facility] Last Admin: 04/22/21 13:23 Dose: 75 mg Documented by: Donepezil HCl (Donepezil 5 Mg Tab) 5 mg PO QDAY [facility] Last Admin: 04/22/21 13:22 Dose: 5 mg Documented by: Gabapentin (Gabapentin 300 Mg Cap) 300 mg PO BID [facility] Last Admin: 04/22/21 21:11 Dose: 300 mg Documented by: Haloperidol Lactate (Haloperidol Lactate 5 Mg/1 Ml Inj) 5 mg IM Q6H PRN PRN Reason: Agitation Lorazepam (Lorazepam 2 Mg/Ml Vial) 2 mg IM Q6H PRN PRN Reason: Agitation Last Admin: 04/18/21 00:30 Dose: 2 mg Documented by: Melatonin (Melatonin 5 Mg Tab) 5 mg PO QHS PRN PRN Reason: Sleep Last Admin: 04/11/21 21:48 Dose: 5 mg Documented by: Memantine (Memantine 10 Mg Tab) 10 mg PO BID [facility] Last Admin: 04/22/21 21:11 Dose: 10 mg Documented by: Mirtazapine (Mirtazapine 15 Mg Tab) 15 mg PO QHS [facility] Last Admin: 04/22/21 21:10 Dose: 15 mg Documented by: Pantoprazole Sodium (Pantoprazole 40 Mg Tab) 40 mg PO QDAY [facility] Last Admin: 04/22/21 13:23 Dose: 40 mg Documented by: Risperidone (Risperidone 1 Mg Tab) 2 mg PO BID [facility] Last Admin: 04/22/21 21:10 Dose: 2 mg Documented by: Sertraline HCl (Sertraline 100 Mg Tab) 100 mg PO QDAY [facility] Last Admin: 04/22/21 13:23 Dose: 100 mg Documented by: Trazodone HCl (Trazodone 50 Mg Tab) 50 mg PO QHS [facility] Last Admin: 04/22/21 21:11 Dose: 50 mg Documented by: Valproic Acid (Valproic Acid 250 Mg/5 Ml Oral Liqd) 250 mg PO TID [facility] Last Admin: 04/22/21 20:45 Dose: 250 mg Documented by: Results - Results Labs/Vitals: Laboratory Last Values WBC 9.8 K/mm3 (4.5-11.0) 04/08/21 22:55 RBC 5.14 M/mm3 (3.65-5.03) H 04/08/21 22:55 Hgb 17.0 gm/dl (11.8-15.2) H 04/08/21 22:55 Hct 49.3 % (35.5-45.6) H D 04/08/21 22:55 MCV 96 fl (84-94) H 04/08/21 22:55 MCH 33 pg (28-32) H 04/08/21 22:55 MCHC 35 % (32-34) H 04/08/21 22:55 RDW 13.1 % (13.2-15.2) L 04/08/21 22:55 Plt Count 249 K/mm3 (140-440) 04/08/21 22:55 Lymph % (Auto) 13.1 % (13.4-35.0) L 04/08/21 22:55 [place] % (Auto) 14.8 % (0.0-7.3) H 04/08/21 22:55 Eos % (Auto) 2.7 % (0.0-4.3) 04/08/21 22:55 Baso % (Auto) 0.5 % (0.0-1.8) 04/08/21 22:55 Lymph # (Auto) 1.3 K/mm3 (1.2-5.4) 04/08/21 22:55 [place] # (Auto) 1.4 K/mm3 (0.0-0.8) H 04/08/21 22:55 Eos # (Auto) 0.3 K/mm3 (0.0-0.4) 04/08/21 22:55 Baso # (Auto) 0.0 K/mm3 (0.0-0.1) 04/08/21 22:55 Seg Neutrophils % 68.9 % (40.0-70.0) 04/08/21 22:55 Seg Neutrophils # 6.7 K/mm3 (1.8-7.7) 04/08/21 22:55 Sodium 139 mmol/L (137-145) 04/08/21 22:55 Potassium 4.1 mmol/L (3.6-5.0) 04/08/21 22:55 Chloride 100.2 mmol/L (98-107) 04/08/21 22:55 Carbon Dioxide 21 mmol/L (22-30) L D 04/08/21 22:55 Anion Gap 22 mmol/L 04/08/21 22:55 BUN 18 mg/dL (9-20) 04/08/21 22:55 Creatinine 0.9 mg/dL (0.8-1.3) 04/08/21 22:55 Estimated GFR > 60 ml/min 04/08/21 22:55 BUN/Creatinine Ratio 20 % 04/08/21 22:55 Glucose 130 mg/dL (75-100) H 04/08/21 22:55 POC Glucose 113 mg/dL (70-105) H 04/07/21 22:48 Hemoglobin A1c 6.6 % (4-6) H 04/08/21 22:55 Calcium 8.9 mg/dL (8.4-10.2) 04/08/21 22:55 Magnesium 2.10 mg/dL (1.7-2.3) 04/08/21 22:55 Total Bilirubin 0.60 mg/dL (0.1-1.2) 04/08/21 22:55 AST 30 units/L (5-40) 04/08/21 22:55 ALT 17 units/L (7-56) 04/08/21 22:55 Alkaline Phosphatase 102 units/L (35-129) 04/08/21 22:55 Total Protein 6.7 g/dL (6.3-8.2) 04/08/21 22:55 Albumin 4.0 g/dL (3.9-5) 04/08/21 22:55 Albumin/Globulin Ratio 1.5 % 04/08/21 22:55 Triglycerides 100 mg/dL (2-149) 04/08/21 22:55 Cholesterol 130 mg/dL (50-199) 04/08/21 22:55 LDL Cholesterol Direct 62 mg/dL (50-130) 04/08/21 22:55 HDL Cholesterol 53 mg/dL (40-59) 04/08/21 22:55 Cholesterol/HDL Ratio 2.45 % 04/08/21 22:55 TSH 3.120 mlU/mL (0.270-4.200) 04/08/21 22:55 Last Vital Signs Temp 97.4 F L 04/22/21 21:10 Pulse 87 04/22/21 21:10 Resp 20 04/22/21 21:10 BP 116/70 04/22/21 21:10 Pulse Ox 92 04/22/21 21:10
[2021-04-23] MEDS: CLOPIDOGREL 75 MG TAB PO SCH (11:58)
[2021-04-23] MEDS: MEMANTINE 10 MG TAB PO SCH ×2 (11:58→21:04)
[2021-04-23] MEDS: DONEPEZIL 5 MG TAB PO SCH (11:58)
[2021-04-23] MEDS: risperiDONE 1 MG TAB PO SCH ×2 (11:58→21:03)
[2021-04-23] MEDS: PANTOPRAZOLE 40 MG TAB PO SCH (11:58)
[2021-04-23] MEDS: SERTRALINE 100 MG TAB PO SCH (11:58)
[2021-04-23] MEDS: VALPROIC ACID 250 MG/5 ML ORAL LIQD PO SCH ×3 (12:00→20:06)
[2021-04-23] MEDS: GABAPENTIN 300 MG CAP PO SCH ×2 (12:00→21:04)
[2021-04-23] MEDS: MIRTAZAPINE 15 MG TAB PO SCH (21:04)
[2021-04-23] MEDS: traZODone 50 MG TAB PO SCH (21:04)
--- NOTE | 2021-04-24 10:20 | Progress Note ---
Subjective Date of service: 04/24/21 Principal diagnosis: Dementia with Behavioral Disturbance Subjective Comment: The patient was seen today. He is sleeping, but easily arouses. He is calm. He is confused but pleasant. He says he feels "okay." The patient says "I did pretty good" when asked if he slept well. Reason for continued inpatient treatment: The is at his baseline. He will likely not have any further improvement as far as his mental health is concerned. The patient will discharge once the social worker delinquency prevention sets up outpatient resources and plan with family. The patient is now awaiting placement. REVIEW OF SYSTEMS ROS cannot be reliably obtained from the patient due to his mental state MENTAL STATUS EXAMINATION Unable to assess Diagnoses Dementia with Behavioral Disturbance Treatment Plan Patient admitted for inpatient psychiatric evaluation, medication adjustment and close monitoring The patient's behavior, mood, sleep and appetite will be closely monitored. Patient enrolled in individual and group therapeutic sessions and encouraged to attend. Patient provided with a safe and structured environment. Patient's physical health needs will be addressed by the Hospitalist. Hospitalist Consulted Labs including CBC, CMP, Lipid profile and Hemoglobin A1C levels ordered for baseline reference Social Assessment will be completed and the Cosmetic Manager will work with patient and family to ensure a suitable and safe disposition Medication adjustment will be made as clinically indicated No changes made today Usual Wellness [facility]: - Start Trazodone 50 mg po QHS & 50 mg po QHS PRN between 10 PM & 2 AM for insomnia - Start Melatonin 5 mg po QHS to promote circadian rhythm - Start [place]-3 for brain health, reduce impulsivity, and as adjunctive treatment for mood disorder, continue upon discharge given overall benefits. - Start B1 prophylaxis with 200 mg po for 5 days The patient agreed on the treatment plan, understood the risk, benefit, alternative treatment, potential consequence of no treatment, and gave informed consent. Estimated days: 1 Post hospital care: primary care provider, psychiatric provider Medications and Allergies Allergies Allergy/AdvReac Type Severity Reaction Status Date / Time No Known Allergies Allergy Unverified 04/06/21 10:45 Home Medications Medication Instructions Recorded Confirmed Last Taken Type AtorvaSTATin [Lipitor] 40 mg PO QHS 04/07/21 04/07/21 Unknown History Clopidogrel [Plavix] 75 mg PO QDAY 04/07/21 04/07/21 Unknown History Gabapentin 300 mg PO BID 04/07/21 04/07/21 Unknown History Memantine 10 mg PO BID 04/07/21 04/07/21 Unknown History Sertraline [Zoloft] 100 mg PO QDAY 04/07/21 04/07/21 Unknown History donepeziL [Aricept] 5 mg PO QDAY 04/07/21 04/07/21 Unknown History traZODone [Desyrel] 50 mg PO QHS 04/07/21 04/07/21 Unknown History Melatonin [Melatonin 5MG TAB] 5 mg PO QHS PRN #30 tablet 04/22/21 Unknown Rx Mirtazapine [Remeron 15mg TAB] 15 mg PO QHS #30 tablet 04/22/21 Unknown Rx VALPROIC ACID Liq [DepaKENE Liq] 250 mg PO TID #90 oral.liqd 04/22/21 Unknown Rx risperiDONE [RisperDAL] 2 mg PO BID #60 tablet 04/22/21 Unknown Rx Active Meds: Active Medications Atorvastatin Calcium (Atorvastatin 40 Mg Tab) 40 mg PO QHS [facility] Last Admin: 04/23/21 21:04 Dose: 40 mg Documented by: Clopidogrel Bisulfate (Clopidogrel 75 Mg Tab) 75 mg PO QDAY [facility] Last Admin: 04/23/21 11:58 Dose: 75 mg Documented by: Donepezil HCl (Donepezil 5 Mg Tab) 5 mg PO QDAY [facility] Last Admin: 04/23/21 11:58 Dose: 5 mg Documented by: Gabapentin (Gabapentin 300 Mg Cap) 300 mg PO BID [facility] Last Admin: 04/23/21 21:04 Dose: 300 mg Documented by: Haloperidol Lactate (Haloperidol Lactate 5 Mg/1 Ml Inj) 5 mg IM Q6H PRN PRN Reason: Agitation Lorazepam (Lorazepam 2 Mg/Ml Vial) 2 mg IM Q6H PRN PRN Reason: Agitation Last Admin: 04/18/21 00:30 Dose: 2 mg Documented by: Melatonin (Melatonin 5 Mg Tab) 5 mg PO QHS PRN PRN Reason: Sleep Last Admin: 04/11/21 21:48 Dose: 5 mg Documented by: Memantine (Memantine 10 Mg Tab) 10 mg PO BID [facility] Last Admin: 04/23/21 21:04 Dose: 10 mg Documented by: Mirtazapine (Mirtazapine 15 Mg Tab) 15 mg PO QHS [facility] Last Admin: 04/23/21 21:04 Dose: 15 mg Documented by: Pantoprazole Sodium (Pantoprazole 40 Mg Tab) 40 mg PO QDAY [facility] Last Admin: 04/23/21 11:58 Dose: 40 mg Documented by: Risperidone (Risperidone 1 Mg Tab) 2 mg PO BID [facility] Last Admin: 04/23/21 21:03 Dose: 2 mg Documented by: Sertraline HCl (Sertraline 100 Mg Tab) 100 mg PO QDAY [facility] Last Admin: 04/23/21 11:58 Dose: 100 mg Documented by: Trazodone HCl (Trazodone 50 Mg Tab) 50 mg PO QHS [facility] Last Admin: 04/23/21 21:04 Dose: 50 mg Documented by: Valproic Acid (Valproic Acid 250 Mg/5 Ml Oral Liqd) 250 mg PO TID [facility] Last Admin: 04/23/21 20:06 Dose: 250 mg Documented by: Results - Results Labs/Vitals: Laboratory Last Values WBC 9.8 K/mm3 (4.5-11.0) 04/08/21 22:55 RBC 5.14 M/mm3 (3.65-5.03) H 04/08/21 22:55 Hgb 17.0 gm/dl (11.8-15.2) H 04/08/21 22:55 Hct 49.3 % (35.5-45.6) H D 04/08/21 22:55 MCV 96 fl (84-94) H 04/08/21 22:55 MCH 33 pg (28-32) H 04/08/21 22:55 MCHC 35 % (32-34) H 04/08/21 22:55 RDW 13.1 % (13.2-15.2) L 04/08/21 22:55 Plt Count 249 K/mm3 (140-440) 04/08/21 22:55 Lymph % (Auto) 13.1 % (13.4-35.0) L 04/08/21 22:55 [place] % (Auto) 14.8 % (0.0-7.3) H 04/08/21 22:55 Eos % (Auto) 2.7 % (0.0-4.3) 04/08/21 22:55 Baso % (Auto) 0.5 % (0.0-1.8) 04/08/21 22:55 Lymph # (Auto) 1.3 K/mm3 (1.2-5.4) 04/08/21 22:55 [place] # (Auto) 1.4 K/mm3 (0.0-0.8) H 04/08/21 22:55 Eos # (Auto) 0.3 K/mm3 (0.0-0.4) 04/08/21 22:55 Baso # (Auto) 0.0 K/mm3 (0.0-0.1) 04/08/21 22:55 Seg Neutrophils % 68.9 % (40.0-70.0) 04/08/21 22:55 Seg Neutrophils # 6.7 K/mm3 (1.8-7.7) 04/08/21 22:55 Sodium 139 mmol/L (137-145) 04/08/21 22:55 Potassium 4.1 mmol/L (3.6-5.0) 04/08/21 22:55 Chloride 100.2 mmol/L (98-107) 04/08/21 22:55 Carbon Dioxide 21 mmol/L (22-30) L D 04/08/21 22:55 Anion Gap 22 mmol/L 04/08/21 22:55 BUN 18 mg/dL (9-20) 04/08/21 22:55 Creatinine 0.9 mg/dL (0.8-1.3) 04/08/21 22:55 Estimated GFR > 60 ml/min 04/08/21 22:55 BUN/Creatinine Ratio 20 % 04/08/21 22:55 Glucose 130 mg/dL (75-100) H 04/08/21 22:55 POC Glucose 113 mg/dL (70-105) H 04/07/21 22:48 Hemoglobin A1c 6.6 % (4-6) H 04/08/21 22:55 Calcium 8.9 mg/dL (8.4-10.2) 04/08/21 22:55 Magnesium 2.10 mg/dL (1.7-2.3) 04/08/21 22:55 Total Bilirubin 0.60 mg/dL (0.1-1.2) 04/08/21 22:55 AST 30 units/L (5-40) 04/08/21 22:55 ALT 17 units/L (7-56) 04/08/21 22:55 Alkaline Phosphatase 102 units/L (35-129) 04/08/21 22:55 Total Protein 6.7 g/dL (6.3-8.2) 04/08/21 22:55 Albumin 4.0 g/dL (3.9-5) 04/08/21 22:55 Albumin/Globulin Ratio 1.5 % 04/08/21 22:55 Triglycerides 100 mg/dL (2-149) 04/08/21 22:55 Cholesterol 130 mg/dL (50-199) 04/08/21 22:55 LDL Cholesterol Direct 62 mg/dL (50-130) 04/08/21 22:55 HDL Cholesterol 53 mg/dL (40-59) 04/08/21 22:55 Cholesterol/HDL Ratio 2.45 % 04/08/21 22:55 TSH 3.120 mlU/mL (0.270-4.200) 04/08/21 22:55 Last Vital Signs Temp 98.4 F 04/23/21 22:00 Pulse 78 04/23/21 22:00 Resp 17 04/23/21 22:00 BP 106/55 04/23/21 22:00 Pulse Ox 93 04/23/21 22:00
[2021-04-24] MEDS: VALPROIC ACID 250 MG/5 ML ORAL LIQD PO SCH ×4 (10:35→20:14)
[2021-04-24] MEDS: MEMANTINE 10 MG TAB PO SCH ×3 (10:35→21:47)
[2021-04-24] MEDS: PANTOPRAZOLE 40 MG TAB PO SCH ×2 (10:35→13:39)
[2021-04-24] MEDS: risperiDONE 1 MG TAB PO SCH ×3 (10:35→21:47)
[2021-04-24] MEDS: CLOPIDOGREL 75 MG TAB PO SCH ×2 (10:35→13:39)
[2021-04-24] MEDS: DONEPEZIL 5 MG TAB PO SCH ×2 (10:35→13:36)
[2021-04-24] MEDS: SERTRALINE 100 MG TAB PO SCH ×2 (10:36→13:39)
[2021-04-24] MEDS: GABAPENTIN 300 MG CAP PO SCH ×3 (10:36→21:47)
[2021-04-24] MEDS: traZODone 50 MG TAB PO SCH (21:47)
[2021-04-24] MEDS: MIRTAZAPINE 15 MG TAB PO SCH (21:48)
--- NOTE | 2021-04-25 08:56 | Discharge Summary ---
Providers - Providers Date of Admission: 04/07/21 22:03 Date of discharge: 04/25/21 Attending physician: RUBY LEE MD 04/07/21 17:48 Consult to Physician [CONS] Routine Comment: Consulting Provider: GONZALO FONTENOT Physician Instructions: Reason For Exam: med mgt Primary care physician: WAITER/WAITRESS FIRST CLASS Hospitalization Reason for admission: agitatation, and combativeness Admitting Diagnosis: F02.81 - DEMENTIA IN OTH DISEASES CLASSD ELSWHR W BEHAVIORAL DISTURB Condition: Stable Hospital course: The patient was provided inpatient psychiatric treatment with safe and supportive care, medication adjustment, adverse effect monitoring, medical evaluations, medical treatments, assessment and psycho-education. The patient's mood, cognition, behavior, moral support are improved and stabilized. St the time of discharge, the patient had no endangering behavior and no debilitating adverse effects. The patient agreed on potential consequences of no treatment and gave informed consent. Disposition: DC/[place]-70 ANOTHER TYPE HLTHCARE Time spent for discharge: 35 Allergies/Adverse Reactions: Allergies No Known Allergies Allergy (Unverified 04/06/21 10:45) Vital Signs: Last Vital Signs Temp 98.4 F 04/23/21 22:00 Pulse 78 04/23/21 22:00 Resp 17 04/23/21 22:00 BP 106/55 04/23/21 22:00 Pulse Ox 93 04/23/21 22:00 Last Lab: Laboratory Last Values WBC 9.8 K/mm3 (4.5-11.0) 04/08/21 22:55 RBC 5.14 M/mm3 (3.65-5.03) H 04/08/21 22:55 Hgb 17.0 gm/dl (11.8-15.2) H 04/08/21 22:55 Hct 49.3 % (35.5-45.6) H D 04/08/21 22:55 MCV 96 fl (84-94) H 04/08/21 22:55 MCH 33 pg (28-32) H 04/08/21 22:55 MCHC 35 % (32-34) H 04/08/21 22:55 RDW 13.1 % (13.2-15.2) L 04/08/21 22:55 Plt Count 249 K/mm3 (140-440) 04/08/21 22:55 Lymph % (Auto) 13.1 % (13.4-35.0) L 04/08/21 22:55 [place] % (Auto) 14.8 % (0.0-7.3) H 04/08/21 22:55 Eos % (Auto) 2.7 % (0.0-4.3) 04/08/21 22:55 Baso % (Auto) 0.5 % (0.0-1.8) 04/08/21 22:55 Lymph # (Auto) 1.3 K/mm3 (1.2-5.4) 04/08/21 22:55 [place] # (Auto) 1.4 K/mm3 (0.0-0.8) H 04/08/21 22:55 Eos # (Auto) 0.3 K/mm3 (0.0-0.4) 04/08/21 22:55 Baso # (Auto) 0.0 K/mm3 (0.0-0.1) 04/08/21 22:55 Seg Neutrophils % 68.9 % (40.0-70.0) 04/08/21 22:55 Seg Neutrophils # 6.7 K/mm3 (1.8-7.7) 04/08/21 22:55 Sodium 139 mmol/L (137-145) 04/08/21 22:55 Potassium 4.1 mmol/L (3.6-5.0) 04/08/21 22:55 Chloride 100.2 mmol/L (98-107) 04/08/21 22:55 Carbon Dioxide 21 mmol/L (22-30) L D 04/08/21 22:55 Anion Gap 22 mmol/L 04/08/21 22:55 BUN 18 mg/dL (9-20) 04/08/21 22:55 Creatinine 0.9 mg/dL (0.8-1.3) 04/08/21 22:55 Estimated GFR > 60 ml/min 04/08/21 22:55 BUN/Creatinine Ratio 20 % 04/08/21 22:55 Glucose 130 mg/dL (75-100) H 04/08/21 22:55 POC Glucose 113 mg/dL (70-105) H 04/07/21 22:48 Hemoglobin A1c 6.6 % (4-6) H 04/08/21 22:55 Calcium 8.9 mg/dL (8.4-10.2) 04/08/21 22:55 Magnesium 2.10 mg/dL (1.7-2.3) 04/08/21 22:55 Total Bilirubin 0.60 mg/dL (0.1-1.2) 04/08/21 22:55 AST 30 units/L (5-40) 04/08/21 22:55 ALT 17 units/L (7-56) 04/08/21 22:55 Alkaline Phosphatase 102 units/L (35-129) 04/08/21 22:55 Total Protein 6.7 g/dL (6.3-8.2) 04/08/21 22:55 Albumin 4.0 g/dL (3.9-5) 04/08/21 22:55 Albumin/Globulin Ratio 1.5 % 04/08/21 22:55 Triglycerides 100 mg/dL (2-149) 04/08/21 22:55 Cholesterol 130 mg/dL (50-199) 04/08/21 22:55 LDL Cholesterol Direct 62 mg/dL (50-130) 04/08/21 22:55 HDL Cholesterol 53 mg/dL (40-59) 04/08/21 22:55 Cholesterol/HDL Ratio 2.45 % 04/08/21 22:55 TSH 3.120 mlU/mL (0.270-4.200) 04/08/21 22:55 Coronavirus (PCR) Negative (Negative) 04/22/21 Unknown Core Measure Documentation - Palliative Care Palliative Care/ Comfort Measures: Not Applicable - Core Measures Any of the following diagnoses?: none Exam - Constitutional Vitals: Temp Pulse Resp BP Pulse Ox 98.4 F 78 17 106/55 93 04/23/21 22:00 04/23/21 22:00 04/23/21 22:00 04/23/21 22:00 04/23/21 22:00 General appearance: Present: no acute distress - EENT Eyes: Present: PERRL, EOM intact ENT: hearing intact, clear oral mucosa - Neck Neck: Present: supple, normal ROM - Respiratory Respiratory effort: normal Plan Activity: advance as tolerated Weight Bearing Status: Weight Bear as Tolerated Care Plan Goals: maintain stable mental health Plan of Treatment: The patient should be compliant with medications, not to use drugs, and not to drink alcohol. The patient understands that if suicidal ideas, homicidal ideas or any endangering feeling arise, the patient should seek assistance including, but not limited to crisis hotline, and emergency room. Assessment: Dementia with behavioral disturbance Follow up with: PRIMARY CARE,MD [Primary Care Provider] - 7 Days Prescriptions: Melatonin [Melatonin 5MG TAB] 5 mg PO QHS PRN #30 tablet PRN Reason: Sleep Mirtazapine [Remeron 15mg TAB] 15 mg PO QHS #30 tablet VALPROIC ACID Liq [DepaKENE Liq] 250 mg PO TID #90 oral.liqd risperiDONE [RisperDAL] 2 mg PO BID #60 tablet
[2021-04-25] MEDS: VALPROIC ACID 250 MG/5 ML ORAL LIQD PO SCH ×2 (10:33→14:34)
[2021-04-25] MEDS: risperiDONE 1 MG TAB PO SCH (14:34)
[2021-04-25] MEDS: PANTOPRAZOLE 40 MG TAB PO SCH (14:34)
[2021-04-25] MEDS: DONEPEZIL 5 MG TAB PO SCH (14:34)
[2021-04-25] MEDS: GABAPENTIN 300 MG CAP PO SCH (14:34)
[2021-04-25] MEDS: MEMANTINE 10 MG TAB PO SCH (14:34)
[2021-04-25] MEDS: SERTRALINE 100 MG TAB PO SCH (14:35)
[2021-04-25] MEDS: CLOPIDOGREL 75 MG TAB PO SCH (14:35)
[2021-04-25 17:34] VITALS: BP 102/60
== END 2021-04-25 18:05 | disposition hospice, home (50) | DRG 884 ==
LOC: UNDOADMIN 16:21 → 3A 16:21 → 5A 22:03
PROVIDERS: ADMIT Psychiatry & Neurology Psychiatry; ATTEND Psychiatry & Neurology Psychiatry
DX: F03.91 Unspecified dementia, unspecified severity, with behavioral disturbance (principal); K21.9 Gastro-esophageal reflux disease without esophagitis; F39 Unspecified mood [affective] disorder; E78.5 Hyperlipidemia, unspecified; I10 Essential (primary) hypertension; I25.10 Atherosclerotic heart disease of native coronary artery without angina pectoris; G47.00 Insomnia, unspecified; Z95.5 Presence of coronary angioplasty implant and graft; Z79.899 Other long term (current) drug therapy; Z79.891 Long term (current) use of opiate analgesic; Z79.01 Long term (current) use of anticoagulants
CPT/HCPCS: 36415; 70450; 71045; 72125; 80048; 80053; 80061; 80307; 80320; 81001; 82550; 82962; 83036; 83735; 84443; 85025; G0378; G0480; J1630; J2060; U0003